=== PATIENT | female | born 1935 | race Caucasian/White ===

== ENCOUNTER → 2018-06-16 12:27 | Outpatient (CLI) | payer BC, SELFPAY ==
[2018-06-16 13:18] LABS: Add Manual Diff / Slide Review NO; Basophils Absolute Auto 100 /uL (0-100); Basophils Percent Auto 1.4 % (0-2); Eosinophils Absolute Auto 100 /uL (0-450); Eosinophils Percent Auto 1.7 % (2-4); Hematocrit 45.7 % (36-46); Hemoglobin 15.8 g/dL (12.0-16.0); Lymphocytes Absolute Auto 2200 /uL (1100-4500); Mean Corpuscular HGB Conc 34.7 % (30-36); Mean Corpuscular Hemoglobin 30.6 PG (26-34); Mean Corpuscular Volume 88.4 fL (80-100); Monocytes Absolute Auto 500 /uL (0-900); Monocytes Percent Auto 7.8 % (3-14); Neutrophils Absolute Auto 3700 /uL (1500-7000); Neutrophils Percent Auto 56.1 % (50-75); Platelet Count 204 X10^3/uL (150-400); Red Blood Cell Count 5.17 X10^6/uL (4.0-5.2); Red Cell Distribution Width 13.2 % (11.6-14.8); White Blood Cell Count 6.6 X10^3/uL (4.5-11.0)
[2018-06-16 13:22] LABS: Alanine Aminotransferase 21 IU/L (9-52); Albumin 4.3 g/dL (3.5-5.0); Albumin Globulin Ratio 1.7 (1.0-2.8); Alkaline Phosphatase 78 U/L (38-126); Aspartate Aminotransferase 24 IU/L (14-36); BUN Creatinine Ratio 18.8 (6-22); Bilirubin Total 1.1 mg/dL (0.2-1.3); Blood Urea Nitrogen 15 mg/dL (7-17); Calcium 9.6 mg/dL (8.4-10.2); Carbon Dioxide 25 mmol/L (22-32); Chloride 101 mmol/L (98-107); Estimated Glomerular Filt Rate > 60.0 mL/min (>60); Globulin 2.6 g/dL (1.7-4.1); Glucose 89 mg/dL (80-110); HEMOLYSIS < 15 (0-50); Potassium 4.3 mmol/L (3.4-5.1); Sodium 136 mmol/L (137-145); Total Protein 6.9 g/dL (6.3-8.2)
[2018-06-16 13:51] LABS: TSH w/ Reflex to FT4 2.51 uIU/mL (0.47-4.68)
== END ==
PROVIDERS: PCP Family Medicine; Visit Provider Family Medicine
DX: I10 Essential (primary) hypertension (principal); D62 Acute posthemorrhagic anemia
CPT/HCPCS: 36415; 80053; 84443; 85025

== ENCOUNTER 2020-03-14 12:44 | Inpatient (IN) | payer MEDICARE, BC, SELFPAY ==
[2020-03-14] VITALS (16 sets, daily range): BP systolic 134–169; BP diastolic 67–94; PULSE 77–115; RESP 16–20; TEMP 36.2–37; O2SAT 92–97; BMI 28.1
--- NOTE | 2020-03-14 13:20 | DI.RAD.S_ITS ---
PROCEDURE: XR HIP W PEL IF DONE RT 2V INDICATIONS: glf TECHNIQUE: AP pelvis with lateral view(s) of the right hip(s). COMPARISON: None. FINDINGS: Bones: No dislocations. Pelvic ring appears intact. No suspicious bony lesions. High probability of femoral neck fracture given morphology and a faint band of sclerosis across the femoral neck on the right. Soft tissues: The visualized bowel gas pattern is normal. No suspicious soft tissue calcifications. IMPRESSION: Right femoral neck fracture as discussed. Dictated by: Gerald Dowling M.D. on 03/14/2020 at 14:04 Approved by: Gerald Dowling M.D. on 03/14/2020 at 14:05
--- NOTE | 2020-03-14 13:51 | ED_ITS ---
HPI - Extremity Injury (Lower) <TERE Mahan - Last Filed: 03/14/20 17:28> General Chief Complaint: Extremity Injury, Lower Stated Complaint: fall yesterday, right hip pain Time Seen by Provider: 03/14/20 13:26 Source: patient Mode of arrival: Ambulatory Limitations: no limitations History of Present Illness HPI Narrative: The patient is an 84-year-old female former smoker with history of right-sided knee replacement who presents with a chief complaint of right- sided hip pain after ground level fall yesterday. She states that she used a new disinfectant spray on linoleum, then stepped on and then slipped. She is adamant that this is a mechanical fall. She did not hit her head. She does not use any blood thinners or take any prescription medication. She states that she tried to stop herself from falling with her right hand and has some bruising there. However that is not painful today. However her hip is increasingly painful today. This occurred fall occurred about 15:30 yesterday, she called her neighbors who came over to help her and brought her Tylenol. She has been using extra-strength Tylenol but states she is still in a lot of pain. She took 1000 mg of Tylenol at 11:30 a.m. this morning. She states she was able to ambulate after the fall. She denies any neck or back pain. She denies any numbness or tingling or any incontinence of bowel or bladder. Last solid intake was yesterday for breakfast. She had water at 11:30 a.m.. Otherwise has not had anything but water today. Related Data Home Medications Medication Instructions Recorded Confirmed Acetaminophen Extra Strength 500 mg PO PRN PRN 03/14/20 03/14/20 Allergies Allergy/AdvReac Type Severity Reaction Status Date / Time gabapentin Allergy Severe BODY WIDE Verified 03/14/20 18:13 EDEMA, NAUSEA meloxicam Allergy Severe SEVERE Verified 03/14/20 18:13 FLUID RETENTION, NAUSEA Sulfa (Sulfonamide Allergy Severe HIVES Verified 03/14/20 18:13 Antibiotics) Review of Systems <TERE Mahan - Last Filed: 03/14/20 17:28> Review of Systems Narrative: GENERAL: Denies chills, fatigue, malaise, fever, sweats. HEENT: Denies sinus pain, ear pain, sore throat, difficulty swallowing, dizziness. RESPIRATORY: Denies dyspnea, cough, wheezing, hemoptysis, sputum. CARDIOVASCULAR: Denies chest pain, palpitations, orthopnea, edema, GASTROINTESTINAL: Denies nausea, vomiting, abdominal pain, diarrhea, constipation, melena. : Denies dysuria, frequency, incontinence, hematuria, urinary retention. MUSCULOSKELETAL: See HPI SKIN: See HPI NEUROLOGIC: Denies weakness, headache, numbness, change in speech, confusion, seizures, incoordination. PSYCHIATRIC: No concerning psychosocial issues. 12 point review of systems is negative except for those stated above Patient History <TERE Mahan - Last Filed: 03/14/20 17:28> Medical History Basal cell carcinoma (BCC) Neuroma Osteoarthritis Pes planus of both feet Surgical History History of bunionectomy History of knee replacement procedure of right knee (~2017) Family History Father Cancer Tobacco use Mother No problems noted. Social History household members: none Smoking Status: Former smoker alcohol intake: current Smoking Status: Former smoker Exam <TERE Mahan - Last Filed: 03/14/20 17:28> Narrative Exam Narrative: GENERAL: This is a well-nourished, well-developed patient, in no acute distress HEAD: Atraumatic. Normocephalic. No temporal or scalp tenderness. EYES: Pupils equal round and reactive. Extraocular motions intact. No scleral icterus. No injection or drainage. ENT: Nose without bleeding, purulent drainage or septal hematoma. Throat without erythema, tonsillar hypertrophy or exudate. Uvula midline. Airway patent. NECK: Trachea midline. No JVD or lymphadenopathy. Supple, nontender, no meningeal signs. CARDIOVASCULAR: Regular rate and rhythm RESPIRATORY: Clear to auscultation. Breath sounds equal bilaterally. No wheezes, rales, or rhonchi. GASTROINTESTINAL: Abdomen soft, non-tender, nondistended. No hepato- splenomegaly, or palpable masses. No guarding. EXTREMITIES: Able to flex and extend all fingers right hand against resistance. Slight pain to palpation noted right hip, no pain to palpation right femur or leg. Positive pedal pulses bilaterally. decreased range of motion right hip all shafer. BACK: Cervical spine nontender to palpation. Nontender without deformity or crepitance. No flank tenderness. NEURO: AOx3. SKIN: Ecchymosis noted on palmar aspect of right hand. Slight ecchymosis on right hip. Initial Vital Signs Initial Vital Signs: Vital Signs Temperature 98.6 F 03/14/20 12:57 Pulse Rate 115 H 03/14/20 12:57 Respiratory Rate 20 03/14/20 12:57 Blood Pressure 160/94 H 03/14/20 12:57 Pulse Oximetry 95 03/14/20 12:57 <Judy Mcintosh MD - Last Filed: 03/15/20 07:46> Initial Vital Signs Initial Vital Signs: Vital Signs Temperature 98.6 F 03/14/20 12:57 Pulse Rate 115 H 03/14/20 12:57 Respiratory Rate 20 03/14/20 12:57 Blood Pressure 160/94 H 03/14/20 12:57 Pulse Oximetry 95 03/14/20 12:57 Scores <TERE Mahan - Last Filed: 03/14/20 17:28> GCS Perry coma scale eye opening: Spontaneous Perry coma scale verbal response: Orientated Perry coma scale motor response: Obey commands Carlos coma scale total score: 15 Course <TERE Mahan - Last Filed: 03/14/20 17:28> Orders Ordered: Acetaminophen (Acetaminophen 325 Mg Tablet) 650 mg PO Q6HR PRN PRN Reason: Fever/Mild Pain (1-3) Acetaminophen/Codeine Phosphate (Codeine/Acetaminophen 30/300 Tablet) 1 tab PO Q6H PRN PRN Reason: Pain, Moderate (4-6) Sodium Chloride (Normal Saline 0.9%) 1,000 mls @ 125 mls/hr IV CONT LUISA Last Admin: 03/14/20 22:26 Dose: 125 mls/hr Documented by: Infusion: 03/14/20 22:26 Dose: 125 mls/hr Documented by: Infusion: 03/14/20 21:14 Dose: 125 mls/hr Documented by: Infusion: 03/14/20 18:00 Dose: 250 mls/hr Documented by: Infusion: 03/14/20 17:47 Dose: 0 mls/hr Documented by: Admin: 03/14/20 17:39 Dose: 250 mls/hr Documented by: LEONELA Naloxone HCl (Naloxone 0.4 Mg/Ml Vial) 0.2 mg IV Q2MIN PRN PRN Reason: Opiate Reversal Ondansetron HCl (Ondansetron 4 Mg/2 Ml Inj) 4 mg IV Q8HR PRN PRN Reason: Nausea And Vomiting Sennosides (Sennosides 8.6 Mg Tablet) 17.2 mg PO BEDTIME [facility] Last Admin: 03/14/20 21:14 Dose: 17.2 mg Documented by: TONY Discontinued Medications Morphine Sulfate (Morphine 2 Mg/Ml Inj) 2 mg IV Q2HR [facility] Last Admin: 03/14/20 22:50 Dose: Not Given Documented by: TONY Morphine Sulfate (Morphine 2 Mg/Ml Inj) 2 mg IV Q2HR PRN PRN Reason: Pain, Moderate (4-6) Vital Signs Vital signs: Vital Signs - 8 hr 03/14/20 12:57 03/14/20 13:42 03/14/20 14:00 Temperature 98.6 F Pulse Rate 115 H 80 79 Respiratory Rate 20 Blood Pressure 160/94 H 160/80 H 140/75 Pulse Oximetry 95 92 93 03/14/20 15:06 03/14/20 15:17 03/14/20 15:30 Temperature Pulse Rate 90 95 H 85 Respiratory Rate Blood Pressure 148/77 H 153/77 H Pulse Oximetry 96 96 96 <Judy Mcintosh MD - Last Filed: 03/15/20 07:46> Orders Ordered: Acetaminophen (Acetaminophen 325 Mg Tablet) 650 mg PO Q6HR PRN PRN Reason: Fever/Mild Pain (1-3) Acetaminophen/Codeine Phosphate (Codeine/Acetaminophen 30/300 Tablet) 1 tab PO Q6H PRN PRN Reason: Pain, Moderate (4-6) Sodium Chloride (Normal Saline 0.9%) 1,000 mls @ 125 mls/hr IV CONT [facility] Last Admin: 03/14/20 22:26 Dose: 125 mls/hr Documented by: Infusion: 03/14/20 22:26 Dose: 125 mls/hr Documented by: Infusion: 03/14/20 21:14 Dose: 125 mls/hr Documented by: Infusion: 03/14/20 18:00 Dose: 250 mls/hr Documented by: Infusion: 03/14/20 17:47 Dose: 0 mls/hr Documented by: Admin: 03/14/20 17:39 Dose: 250 mls/hr Documented by: LEONELA Naloxone HCl (Naloxone 0.4 Mg/Ml Vial) 0.2 mg IV Q2MIN PRN PRN Reason: Opiate Reversal Ondansetron HCl (Ondansetron 4 Mg/2 Ml Inj) 4 mg IV Q8HR PRN PRN Reason: Nausea And Vomiting Sennosides (Sennosides 8.6 Mg Tablet) 17.2 mg PO BEDTIME [facility] Last Admin: 03/14/20 21:14 Dose: 17.2 mg Documented by: TONY Discontinued Medications Morphine Sulfate (Morphine 2 Mg/Ml Inj) 2 mg IV Q2HR [facility] Last Admin: 03/14/20 22:50 Dose: Not Given Documented by: TONY Morphine Sulfate (Morphine 2 Mg/Ml Inj) 2 mg IV Q2HR PRN PRN Reason: Pain, Moderate (4-6) Vital Signs Vital signs: Vital Signs - 8 hr 03/14/20 12:57 03/14/20 13:42 03/14/20 14:00 Temperature 98.6 F Pulse Rate 115 H 80 79 Respiratory Rate 20 Blood Pressure 160/94 H 160/80 H 140/75 Pulse Oximetry 95 92 93 03/14/20 15:06 03/14/20 15:17 03/14/20 15:30 Temperature Pulse Rate 90 95 H 85 Respiratory Rate Blood Pressure 148/77 H 153/77 H Pulse Oximetry 96 96 96 MDM - Extremity Injury (Lower) <TERE Mahan - Last Filed: 03/14/20 17:28> Lab Data Attestation: I reviewed the patient's lab results. Result diagrams: 03/15/20 06:15 03/15/20 06:15 Labs: Lab Results 03/14/20 03/14/20 03/14/20 Range/Units 14:35 14:35 14:35 WBC 8.2 (4.5-11.0) X10^3/uL RBC 4.84 (4.0-5.2) X10^6/uL Hgb 14.6 (12.0-16.0) g/dL Hct 42.9 (36-46) % MCV 88.7 (80-100) fL MCH 30.2 (26-34) PG MCHC 34.1 (30-36) % RDW 13.0 (11.6-14.8) % Plt Count 159 (150-400) X10^3/uL Neut % (Auto) 77.6 H (50-75) % Lymph % (Auto) 14.3 L (25-40) % [place] % (Auto) 6.1 (3-14) % Eos % (Auto) 1.3 L (2-4) % Baso % (Auto) 0.7 (0-2) % Neut # (Auto) 6400 (5580-8314) /uL Lymph # (Auto) 1200 (8813-9267) /uL [place] # (Auto) 500 (0-900) /uL Eos # (Auto) 100 (0-450) /uL Baso # (Auto) 100 (0-100) /uL Sodium 135 L (137-145) mmol/L Potassium 3.9 (3.4-5.1) mmol/L Chloride 104 (98-107) mmol/L Carbon Dioxide 27 (22-32) mmol/L BUN 14 (7-17) mg/dL Creatinine 0.70 (0.52-1.04) mg/dL Estimated GFR > 60.0 (>60) mL/min BUN/Creatinine Ratio 20.0 (6-22) Glucose 107 (80-110) mg/dL Calcium 9.3 (8.4-10.2) mg/dL Total Bilirubin 2.9 H (0.2-1.3) mg/dL AST 28 (14-36) IU/L ALT 16 (<35) IU/L Alkaline Phosphatase 68 (38-126) U/L Total Protein 6.8 (6.3-8.2) g/dL Albumin 4.0 (3.5-5.0) g/dL Globulin 2.8 (1.7-4.1) g/dL Albumin/Globulin Ratio 1.4 (1.0-2.8) Urine Color Urine Appearance Urine pH (4.5-8.0) Ur Specific [place] (1.000-1.035) Urine Protein (Negative) Urine Glucose (UA) (Negative) g/dL Urine Ketones (NEGATIVE) Urine Occult Blood (Negative) Urine Nitrate (Negative) Urine Bilirubin (NEGATIVE) Urine Urobilinogen (0.2) E.U./dL Ur Leukocyte Esterase (NEGATIVE) Urine RBC (0-5/HPF) Urine WBC (0-5/HPF) Ur Squamous Epith Cells (0-5/HPF) Amorphous Sediment Urine Bacteria (None) Urine Mucus (Negative) Ur Culture Indicated? SARS-CoV-2 (PCR) (Negative) Blood Type O Positive Antibody Screen Negative 03/14/20 03/14/20 Range/Units 14:40 15:00 WBC (4.5-11.0) X10^3/uL RBC (4.0-5.2) X10^6/uL Hgb (12.0-16.0) g/dL Hct (36-46) % MCV (80-100) fL MCH (26-34) PG MCHC (30-36) % RDW (11.6-14.8) % Plt Count (150-400) X10^3/uL Neut % (Auto) (50-75) % Lymph % (Auto) (25-40) % [place] % (Auto) (3-14) % Eos % (Auto) (2-4) % Baso % (Auto) (0-2) % Neut # (Auto) (2007-6088) /uL Lymph # (Auto) (1687-2118) /uL [place] # (Auto) (0-900) /uL Eos # (Auto) (0-450) /uL Baso # (Auto) (0-100) /uL Sodium (137-145) mmol/L Potassium (3.4-5.1) mmol/L Chloride (98-107) mmol/L Carbon Dioxide (22-32) mmol/L BUN (7-17) mg/dL Creatinine (0.52-1.04) mg/dL Estimated GFR (>60) mL/min BUN/Creatinine Ratio (6-22) Glucose (80-110) mg/dL Calcium (8.4-10.2) mg/dL Total Bilirubin (0.2-1.3) mg/dL AST (14-36) IU/L ALT (<35) IU/L Alkaline Phosphatase (38-126) U/L Total Protein (6.3-8.2) g/dL Albumin (3.5-5.0) g/dL Globulin (1.7-4.1) g/dL Albumin/Globulin Ratio (1.0-2.8) Urine Color Yellow Urine Appearance Clear Urine pH 5.5 (4.5-8.0) Ur Specific [place] 1.020 (1.000-1.035) Urine Protein Negative (Negative) Urine Glucose (UA) Negative (Negative) g/dL Urine Ketones 1+ H (NEGATIVE) Urine Occult Blood Trace-lysed (Negative) Urine Nitrate Negative (Negative) Urine Bilirubin Negative (NEGATIVE) Urine Urobilinogen 0.2 (0.2) E.U./dL Ur Leukocyte Esterase Negative (NEGATIVE) Urine RBC 0-1/hpf (0-5/HPF) Urine WBC 0-1/hpf (0-5/HPF) Ur Squamous Epith Cells 0-1 /hpf (0-5/HPF) Amorphous Sediment 1+ Urine Bacteria None seen (None) Urine Mucus 1+ H (Negative) Ur Culture Indicated? Cult not indicated SARS-CoV-2 (PCR) Negative (Negative) Blood Type Antibody Screen Imaging Data hip xray : Radiologist's Impression: [address] [place] [id number] Repo rtSigned Patient: Yaneth Hartley [facility]#: [id number]: 5Acct:[id number]/Sex: 84 / FDate of Service: 03/14/20Loc: EDAccession Number: [id number] Procedure: XR hip w pel if done RT 2V Ordering Provider: Judy Mcintosh MD PROCEDURE: XR HIP W PEL IF DONE RT 2V INDICATIONS: glf TECHNIQUE: AP pelvis with lateral view(s) of the right hip(s). COMPARISON: None. FINDINGS: Bones: No dislocations. Pelvic ring appears intact. No suspicious bony lesions. High probability of femoral neck fracture given morphology and a faint band of sclerosis across the femoral neck on the right. Soft tissues: The visualized bowel gas pattern is normal. No suspicious soft tissue calcifications. IMPRESSION: Right femoral neck fracture as discussed. hip ct : Radiologist's Impression: [address] [place] [id number] Scan ReportSigned Patient: Yaneth Hartley [facility]#: [id number]: 5Acct:[id number]/Sex: 84 / FDate of Service: 03/14/20Loc: EDAccession Number: [id number] Procedure: CT pelvis wo con Ordering Provider: Meagan Rosario PROCEDURE: CT PEL WO CON INDICATIONS: ? r fem neck fx on xray TECHNIQUE: Noncontrast 3 mm axial sections acquired through the bony pelvis, with coronal and sagittal reformatting. COMPARISON: [facility], MR, HIP W&WO CONTRAST, 09/18/2014, 14:02. [facility], CR, XR HIP W PEL IF DONE RT 2V, 03/14/2020, 13:24. FINDINGS: Image quality: Excellent. Bones: There is a mildly impacted slightly angulated right femoral neck fracture, causing both a band of vague sclerosis across the femoral neck and a relatively sharply demarcated additional sclerotic line indicating acute fracture rather than chronic fracture as the likely cause. A prior MRI from 09/18/14 had shown normal appearance of the femoral neck in that area previously. No adjacent hematoma is found. A Aguilar catheter empties the bladder lumen. No additional osseous abnormality is seen. Soft tissues: No evidence of ligamentous injury. IMPRESSION: Acute appearing subcapital femoral neck fracture with mild impaction and angulation abnormality, in an area previously normal on prior MR scanning. No adjacent soft tissue edema or hematoma found. Findings discussed with the ordering emergency room physician caring for the patient. Dictated by: Gerald Dowling M.D. on 03/14/2020 at 16:40 Approved by: Gerald Dowling M.D. on 03/14/2020 at 16:48 [facility] Narrative Medical decision making narrative: The patient is an 84-year-old female who p resents 1 day after ground level fall. She complains of right hip pain and difficulty to bear weight. She did not hit her head or neck. Denies any other pain. X-ray illustrate right femoral neck fracture. I spoke with Dr. An from [facility] who would like a CT. CT obtained per his request. Spoke with Dr. An again. Spoke with Dr. jensen who kindly accepted the patient for inpatient admission. Patient states understanding and is appreciative of her care today. <Judy Mcintosh MD - Last Filed: 03/15/20 07:46> Lab Data Labs: Lab Results 03/14/20 03/14/20 03/14/20 Range/Units 14:35 14:35 14:35 WBC 8.2 (4.5-11.0) X10^3/uL RBC 4.84 (4.0-5.2) X10^6/uL Hgb 14.6 (12.0-16.0) g/dL Hct 42.9 (36-46) % MCV 88.7 (80-100) fL MCH 30.2 (26-34) PG MCHC 34.1 (30-36) % RDW 13.0 (11.6-14.8) % Plt Count 159 (150-400) X10^3/uL Neut % (Auto) 77.6 H (50-75) % Lymph % (Auto) 14.3 L (25-40) % [place] % (Auto) 6.1 (3-14) % Eos % (Auto) 1.3 L (2-4) % Baso % (Auto) 0.7 (0-2) % Neut # (Auto) 6400 (0361-4136) /uL Lymph # (Auto) 1200 (3043-9167) /uL [place] # (Auto) 500 (0-900) /uL Eos # (Auto) 100 (0-450) /uL Baso # (Auto) 100 (0-100) /uL Sodium 135 L (137-145) mmol/L Potassium 3.9 (3.4-5.1) mmol/L Chloride 104 (98-107) mmol/L Carbon Dioxide 27 (22-32) mmol/L BUN 14 (7-17) mg/dL Creatinine 0.70 (0.52-1.04) mg/dL Estimated GFR > 60.0 (>60) mL/min BUN/Creatinine Ratio 20.0 (6-22) Glucose 107 (80-110) mg/dL Calcium 9.3 (8.4-10.2) mg/dL Total Bilirubin 2.9 H (0.2-1.3) mg/dL AST 28 (14-36) IU/L ALT 16 (<35) IU/L Alkaline Phosphatase 68 (38-126) U/L Total Protein 6.8 (6.3-8.2) g/dL Albumin 4.0 (3.5-5.0) g/dL Globulin 2.8 (1.7-4.1) g/dL Albumin/Globulin Ratio 1.4 (1.0-2.8) Urine Color Urine Appearance Urine pH (4.5-8.0) Ur Specific [place] (1.000-1.035) Urine Protein (Negative) Urine Glucose (UA) (Negative) g/dL Urine Ketones (NEGATIVE) Urine Occult Blood (Negative) Urine Nitrate (Negative) Urine Bilirubin (NEGATIVE) Urine Urobilinogen (0.2) E.U./dL Ur Leukocyte Esterase (NEGATIVE) Urine RBC (0-5/HPF) Urine WBC (0-5/HPF) Ur Squamous Epith Cells (0-5/HPF) Amorphous Sediment Urine Bacteria (None) Urine Mucus (Negative) Ur Culture Indicated? SARS-CoV-2 (PCR) (Negative) Blood Type O Positive Antibody Screen Negative 03/14/20 03/14/20 Range/Units 14:40 15:00 WBC (4.5-11.0) X10^3/uL RBC (4.0-5.2) X10^6/uL Hgb (12.0-16.0) g/dL Hct (36-46) % MCV (80-100) fL MCH (26-34) PG MCHC (30-36) % RDW (11.6-14.8) % Plt Count (150-400) X10^3/uL Neut % (Auto) (50-75) % Lymph % (Auto) (25-40) % [place] % (Auto) (3-14) % Eos % (Auto) (2-4) % Baso % (Auto) (0-2) % Neut # (Auto) (0181-6062) /uL Lymph # (Auto) (0786-0176) /uL [place] # (Auto) (0-900) /uL Eos # (Auto) (0-450) /uL Baso # (Auto) (0-100) /uL Sodium (137-145) mmol/L Potassium (3.4-5.1) mmol/L Chloride (98-107) mmol/L Carbon Dioxide (22-32) mmol/L BUN (7-17) mg/dL Creatinine (0.52-1.04) mg/dL Estimated GFR (>60) mL/min BUN/Creatinine Ratio (6-22) Glucose (80-110) mg/dL Calcium (8.4-10.2) mg/dL Total Bilirubin (0.2-1.3) mg/dL AST (14-36) IU/L ALT (<35) IU/L Alkaline Phosphatase (38-126) U/L Total Protein (6.3-8.2) g/dL Albumin (3.5-5.0) g/dL Globulin (1.7-4.1) g/dL Albumin/Globulin Ratio (1.0-2.8) Urine Color Yellow Urine Appearance Clear Urine pH 5.5 (4.5-8.0) Ur Specific [place] 1.020 (1.000-1.035) Urine Protein Negative (Negative) Urine Glucose (UA) Negative (Negative) g/dL Urine Ketones 1+ H (NEGATIVE) Urine Occult Blood Trace-lysed (Negative) Urine Nitrate Negative (Negative) Urine Bilirubin Negative (NEGATIVE) Urine Urobilinogen 0.2 (0.2) E.U./dL Ur Leukocyte Esterase Negative (NEGATIVE) Urine RBC 0-1/hpf (0-5/HPF) Urine WBC 0-1/hpf (0-5/HPF) Ur Squamous Epith Cells 0-1 /hpf (0-5/HPF) Amorphous Sediment 1+ Urine Bacteria None seen (None) Urine Mucus 1+ H (Negative) Ur Culture Indicated? Cult not indicated SARS-CoV-2 (PCR) Negative (Negative) Blood Type Antibody Screen Discharge Plan Departure Patient Disposition: Admitted As Inpatient Clinical Impression: Closed fracture of neck of right femur Qualifiers: Encounter type: initial encounter Qualified Code(s): S72.001A - Fracture of unspecified part of neck of right femur, initial encounter for closed fracture Admit Date/Time: 03/14/20 17:28 Admit Provider: Shy Jensen <Judy Mcintosh MD - Last Filed: 03/15/20 07:46> Cosign ED Attending Cosignature Attestation: I was immediately available in the department for consultation throughout this patient's visit. I agree with documentation as above. Judy Mcintosh MD
[2020-03-14 14:43] LABS: Add Manual Diff / Slide Review NO; Basophils Absolute Auto 100 /uL (0-100); Basophils Percent Auto 0.7 % (0-2); Eosinophils Absolute Auto 100 /uL (0-450); Eosinophils Percent Auto 1.3 % (2-4); Hematocrit 42.9 % (36-46); Hemoglobin 14.6 g/dL (12.0-16.0); Lymphocytes Absolute Auto 1200 /uL (1100-4500); Lymphocytes Percent Auto 14.3 % (25-40); Mean Corpuscular HGB Conc 34.1 % (30-36); Mean Corpuscular Hemoglobin 30.2 PG (26-34); Mean Corpuscular Volume 88.7 fL (80-100); Monocytes Absolute Auto 500 /uL (0-900); Monocytes Percent Auto 6.1 % (3-14); Neutrophils Absolute Auto 6400 /uL (1500-7000); Neutrophils Percent Auto 77.6 % (50-75); Platelet Count 159 X10^3/uL (150-400); Red Blood Cell Count 4.84 X10^6/uL (4.0-5.2); White Blood Cell Count 8.2 X10^3/uL (4.5-11.0)
[2020-03-14 14:54] LABS: Alanine Aminotransferase 16 IU/L (<35); Albumin Globulin Ratio 1.4 (1.0-2.8); Alkaline Phosphatase 68 U/L (38-126); Aspartate Aminotransferase 28 IU/L (14-36); Bilirubin Total 2.9 mg/dL (0.2-1.3); Blood Urea Nitrogen 14 mg/dL (7-17); Calcium 9.3 mg/dL (8.4-10.2); Carbon Dioxide 27 mmol/L (22-32); Chloride 104 mmol/L (98-107); Estimated Glomerular Filt Rate > 60.0 mL/min (>60); Globulin 2.8 g/dL (1.7-4.1); Glucose 107 mg/dL (80-110); HEMOLYSIS < 15 (0-50); Potassium 3.9 mmol/L (3.4-5.1); Sodium 135 mmol/L (137-145); Total Protein 6.8 g/dL (6.3-8.2)
[2020-03-14 15:03] LABS: COVID19 -Nasal RAPID Negative (Negative)
[2020-03-14 15:26] LABS: Bacteria Urine None Seen
[2020-03-14 15:27] LABS: Appearance Urine UA CLEAR; Bilirubin Urine UA NEGATIVE (NEGATIVE); Color Urine UA YELLOW; Glucose Urine UA NEGATIVE (Negative); Ketones Urine UA 1+ (NEGATIVE); Leukocyte Esterase Urine UA NEGATIVE (NEGATIVE); Nitrite Urine UA NEGATIVE (Negative); Occult Blood Urine UA TRACE-LYSED (Negative); Protein Urine UA NEGATIVE (Negative); Urobilinogen Urine UA 0.2 E.U./dL (0.2)
[2020-03-14 15:38] LABS: pH Urine UA 5.5 (4.5-8.0)
[2020-03-14 15:39] LABS: Amorphous Sediment Urine 1+; Culture Indicated Urine Cult Not Indicated; Mucus Urine 1+ (Negative); RBC Urine 0-1/HPF (0-5/HPF); Squamous Epithelial Cell Urine 0-1 /HPF (0-5/HPF); WBC Urine 0-1/HPF (0-5/HPF)
--- NOTE | 2020-03-14 15:40 | DI.CT.S_ITS ---
PROCEDURE: CT PEL WO CON INDICATIONS: ? r fem neck fx on xray TECHNIQUE: Noncontrast 3 mm axial sections acquired through the bony pelvis, with coronal and sagittal reformatting. COMPARISON: [facility], MR, HIP W&WO CONTRAST, 09/18/2014, 14:02. [facility], CR, XR HIP W PEL IF DONE RT 2V, 03/14/2020, 13:24. FINDINGS: Image quality: Excellent. Bones: There is a mildly impacted slightly angulated right femoral neck fracture, causing both a band of vague sclerosis across the femoral neck and a relatively sharply demarcated additional sclerotic line indicating acute fracture rather than chronic fracture as the likely cause. A prior MRI from 09/18/14 had shown normal appearance of the femoral neck in that area previously. No adjacent hematoma is found. A Aguilar catheter empties the bladder lumen. No additional osseous abnormality is seen. Soft tissues: No evidence of ligamentous injury. IMPRESSION: Acute appearing subcapital femoral neck fracture with mild impaction and angulation abnormality, in an area previously normal on prior MR scanning. No adjacent soft tissue edema or hematoma found. Findings discussed with the ordering emergency room physician caring for the patient. Dictated by: Gerald Dowling M.D. on 03/14/2020 at 16:40 Approved by: Gerald Dowling M.D. on 03/14/2020 at 16:48
[2020-03-14] MEDS: SODIUM CHLORIDE 0.9% 1,000 ML 250 ML IV (17:39)
[2020-03-14] MEDS: SENNOSIDES 8.6 MG TABLET 17.2 MG PO (21:14)
[2020-03-14] MEDS: SODIUM CHLORIDE 0.9% 1,000 ML 125 ML IV (22:26)
[2020-03-15] VITALS (20 sets, daily range): BP systolic 130–164; BP diastolic 61–87; PULSE 71–97; RESP 10–20; TEMP 36.3–37.3; O2SAT 92–96; BMI 27.3
--- NOTE | 2020-03-15 | DI.RAD.S_ITS ---
PROCEDURE: XR HIP W PEL IF DONE RT 2V INDICATIONS: BROKEN HIP TECHNIQUE: Fluoroscopic images were obtained during an operative procedure and submitted for interpretation following the completion of the procedure. COMPARISON: [facility], CT, CT PEL WO CON, 03/14/2020, 15:43. [facility], CR, XR HIP W PEL IF DONE RT 2V, 03/14/2020, 13:24. FINDINGS: These fluoroscopic images were performed for intraoperative localization. On these images, screws are seen involving the femoral neck. Please correlate with intraoperative findings. IMPRESSION: Normal intraoperative examination. Dictated by: Chino Story M.D. on 03/15/2020 at 10:30 Approved by: Chino Story M.D. on 03/15/2020 at 10:31
--- NOTE | 2020-03-15 01:02 | P.HP_ITS ---
History of Present Illness History of Present Illness Date Patient Seen: 03/14/20 Time Patient Seen: 22:00 Chief complaint: fall yesterday, right hip pain Narrative: Yaneth Hartley is a delightful 84 y.o. female who lives at home and takes no medications and was cleaning her laundry room floor with a different smoking pipes cleaner she is accustomed to when she slipped and fell, bruising her hand yesterday. She began to have pain in her right hip and started taking double doses of Tylenol. After talking about it with a friend was convinced to go to the hospital to have it checked out. She does have a history of osteoporosis for which she is not taking any bisphosphonates. She denies hitting her head, losing consciousness, having difficulty breathing or shortness of breath, chest pain, nausea vomiting, dysuria, diarrhea or constipation. She does complain of bruising of her right hand. CT of the pelvis done in the ED reported that ?Acute appearing subcapital femo ral neck fracture with mild impaction and angulation abnormality, in an area previously normal on prior MR scanning. Patient is afebrile at 98.2, blood pressure 146/89, heart rate 77, respiratory rate of 16, she has an oxygen saturation 95% on room air, she weighs 72.3 kg with a BMI of 28.1. CBC is essentially within normal limits, sodium was 135, she had a elevated bilirubin of 2.9, your UA was negative for UTI, and COVID-19 PCR was negative. Patient History Medical History Basal cell carcinoma (BCC) Neuroma Osteoarthritis Pes planus of both feet Surgical History History of bunionectomy History of knee replacement procedure of right knee (~2017) Family & Social History Family History Father Cancer Tobacco use Mother No problems noted. Social History: household members none Prior Living Arrangements House Safety & Behavioral: Feels Safe in Current Yes Environment Been Physically Hurt or No Threatened By a Person Suicidal Ideation Description None Suicide Plan Description No Plan Tobacco & Substance use: Tobacco type cigarettes Smoking Status Former smoker alcohol intake current alcohol intake frequency holiday/special occasion Substance Use Type does not use Meds Home Medications and Allergies Home Medications Medication Instructions Recorded Confirmed Type Acetaminophen Extra Strength 500 mg PO PRN PRN 03/14/20 03/14/20 History Allergies Allergy/AdvReac Type Severity Reaction Status Date / Time gabapentin Allergy Severe BODY WIDE Verified 03/14/20 18:13 EDEMA, NAUSEA meloxicam Allergy Severe SEVERE Verified 03/14/20 18:13 FLUID RETENTION, NAUSEA Sulfa (Sulfonamide Allergy Severe HIVES Verified 03/14/20 18:13 Antibiotics) Review of Systems Review of Systems ROS: Yes All systems reviewed with the patient and are negative except as otherwise documented Exam Vital Signs (past 8 hours): - 03/14/20 17:30 03/14/20 17:31 03/14/20 19:06 Temperature 97.2 F L Pulse Rate 83 84 102 H Respiratory Rate 18 Blood Pressure 169/74 H 161/88 H Pulse Oximetry 94 94 95 03/14/20 20:57 03/14/20 21:15 03/14/20 23:42 Temperature 98.3 F 98.2 F Pulse Rate 86 77 Respiratory Rate 18 16 Blood Pressure 144/87 H 146/89 H Pulse Oximetry 93 93 95 Oxygen Delivery Method Room Air Oxygen Flow Rate 0 Narrative Exam Narrative: Gen: Alert, oriented, well-developed 84 y.o. female, mildly anxious initially HEENT: normocephalic, atraumatic, conjunctiva clear, sclera non-icteric, oral mucosa pink and moist Neck: supple, full ROM, no JVD, trachea is midline Resp: Lungs CTA, non-labored breathing CV: RRR, no murmur or rubs Abd: soft, non-tender, normoactive BTs Skin: no lesions or rashes, dry and intact Neuro: Alert and oriented X 4 w/no focal deficits. Speech clear and coherent. Extremities: Bruising of palmar surface of her right hand, right leg is contracted, negative Jono?s sign Psyche: normal mood and affect. Objective Labs Result Diagrams: 03/14/20 14:35 03/14/20 14:35 Labs: Laboratory Results - last 24 hr 03/14/20 03/14/20 03/14/20 14:35 14:35 14:35 WBC 8.2 RBC 4.84 Hgb 14.6 Hct 42.9 MCV 88.7 MCH 30.2 MCHC 34.1 RDW 13.0 Plt Count 159 Neut % (Auto) 77.6 H Lymph % (Auto) 14.3 L [place] % (Auto) 6.1 Eos % (Auto) 1.3 L Baso % (Auto) 0.7 Neut # (Auto) 6400 Lymph # (Auto) 1200 [place] # (Auto) 500 Eos # (Auto) 100 Baso # (Auto) 100 Sodium 135 L Potassium 3.9 Chloride 104 Carbon Dioxide 27 BUN 14 Creatinine 0.70 Estimated GFR > 60.0 BUN/Creatinine Ratio 20.0 Glucose 107 Calcium 9.3 Total Bilirubin 2.9 H AST 28 ALT 16 Alkaline Phosphatase 68 Total Protein 6.8 Albumin 4.0 Globulin 2.8 Albumin/Globulin Ratio 1.4 Urine Color Urine Appearance Urine pH Ur Specific [place] Urine Protein Urine Glucose (UA) Urine Ketones Urine Occult Blood Urine Nitrate Urine Bilirubin Urine Urobilinogen Ur Leukocyte Esterase Urine RBC Urine WBC Ur Squamous Epith Cells Amorphous Sediment Urine Bacteria Urine Mucus Ur Culture Indicated? SARS-CoV-2 (PCR) Blood Type O Positive Antibody Screen Negative 03/14/20 03/14/20 14:40 15:00 WBC RBC Hgb Hct MCV MCH MCHC RDW Plt Count Neut % (Auto) Lymph % (Auto) [facility] % (Auto) Eos % (Auto) Baso % (Auto) Neut # (Auto) Lymph # (Auto) [place] # (Auto) Eos # (Auto) Baso # (Auto) Sodium Potassium Chloride Carbon Dioxide BUN Creatinine Estimated GFR BUN/Creatinine Ratio Glucose Calcium Total Bilirubin AST ALT Alkaline Phosphatase Total Protein Albumin Globulin Albumin/Globulin Ratio Urine Color Yellow Urine Appearance Clear Urine pH 5.5 Ur Specific [place] 1.020 Urine Protein Negative Urine Glucose (UA) Negative Urine Ketones 1+ H Urine Occult Blood Trace-lysed Urine Nitrate Negative Urine Bilirubin Negative Urine Urobilinogen 0.2 Ur Leukocyte Esterase Negative Urine RBC 0-1/hpf Urine WBC 0-1/hpf Ur Squamous Epith Cells 0-1 /hpf Amorphous Sediment 1+ Urine Bacteria None seen Urine Mucus 1+ H Ur Culture Indicated? Cult not indicated SARS-CoV-2 (PCR) Negative Blood Type Antibody Screen Assessment & Plan Assessment & Plan narrative: Yaneth Hartley is admitted for surgical treatment of an acute right subcapital femoral neck fracture. Acute right subcapitol femoral neck fracture, present on admission -Dr. An plans on taking her into the OR on 03/15 -Pain control with T3, patient declining morphine Elevated blood pressure without a diagnosis of hypertension with a bp of 146/89 -Likely due to pain and anxiety associated with anticipated surgery VTE prophylaxis: Wells risk score: 0 Bilateral SCDs Consults: Dr. An, consult and involvement is appreciated. Patient is admitted under inpatient status with expected length of stay greater than 2 midnights due to severity of presenting symptoms, risk of adverse event, and complexity of treatment plan. FEN: NS at 100 ml/hour, regular diet, NPO after midnight, BMP and magnesium in the am. Dispo: Unknown at this time. She lives with level access in her own home, recommend HHPT Code Status: Full code as discussed with patient COVID-19 COVID-19 status: Negative Result date/Date tested (Pos, Neg/Pending): 03/14/20 Quality VTE Deep Vein Thrombosis/Pulmonary Embolism Present on Admission: No
[2020-03-15 06:26] LABS: Add Manual Diff / Slide Review NO; Basophils Absolute Auto 100 /uL (0-100); Eosinophils Absolute Auto 300 /uL (0-450); Eosinophils Percent Auto 3.8 % (2-4); Hematocrit 39.6 % (36-46); Hemoglobin 13.5 g/dL (12.0-16.0); Lymphocytes Absolute Auto 1600 /uL (1100-4500); Lymphocytes Percent Auto 21.7 % (25-40); Mean Corpuscular HGB Conc 34.1 % (30-36); Mean Corpuscular Volume 88.2 fL (80-100); Monocytes Absolute Auto 500 /uL (0-900); Monocytes Percent Auto 6.9 % (3-14); Neutrophils Absolute Auto 4800 /uL (1500-7000); Neutrophils Percent Auto 66.6 % (50-75); Platelet Count 146 X10^3/uL (150-400); Red Blood Cell Count 4.49 X10^6/uL (4.0-5.2); Red Cell Distribution Width 12.7 % (11.6-14.8); White Blood Cell Count 7.2 X10^3/uL (4.5-11.0)
[2020-03-15 06:55] LABS: BUN Creatinine Ratio 13.2 (6-22); Blood Urea Nitrogen 9 mg/dL (7-17); Calcium 8.4 mg/dL (8.4-10.2); Carbon Dioxide 26 mmol/L (22-32); Chloride 108 mmol/L (98-107); Estimated Glomerular Filt Rate > 60.0 mL/min (>60); Glucose 90 mg/dL (80-110); HEMOLYSIS < 15 (0-50); Magnesium 1.6 mg/dL (1.6-2.3); Potassium 3.5 mmol/L (3.4-5.1); Sodium 135 mmol/L (137-145)
[2020-03-15] MEDS: SODIUM CHLORIDE 0.9% 1,000 ML 125 ML IV (08:15)
--- NOTE | 2020-03-15 09:16 | CM.IDA ---
Addendum entered by JESUS Davies 03/15/20 15:04: Met w/patient briefly after she returned to the acute care floor from surgery, patient in good spirits. Patient indp and active at baseline, very hopeful to return home w/assist from her friends. This COMMAND AND CONTROL SYSTEMS INTEGRATOR suggested, at the very least, she should ask her friend(s) to stay w/her a night hopefully two upon her DC. Patient understood, PT still pending, patient is only POD#0 MARLON Original Note: Initial DCP Assessment Note Patient is an 84 yo female, resident of [place]. Patient presents after GLF at home and subsequent hip fx, going to surgery w/ Dr An today for hip repair. PCP: Enedelia Fabian Payer: [facility] Reviewed chart. Patient is scheduled for hip repair at 1045 03.15.20. DCP team will follow closely and plan to complete assessment of DC needs s/p surgery and after therapies have evaluated. MARLON Discharge Planning/Care Management CM Discharge Assessment Start: 03/15/20 08:56 Freq: Status: Active Protocol: Document 03/15/20 08:56 MARLON (Rec: 03/15/20 09:15 MARLON [id number]) Discharge Planning Assessment Assigned Flower Picker JESUS Oliveira DPOA/Assigned Designee Name Mick Hartley, son (OR) Contact Information [phone] Advance Directives? Yes Advance Directives on File Yes History Provided By Patient,Medical Record Prior Living Arrangements House Comment Lives alone, indp at baseline Household Members none Type of transporation used prior to Drives own vehicle admit Independent with ADL's Yes Is patient alert and oriented? Yes Barriers to Discharge Yes Comment Lives alone; may require assistance upon DC Review Status In Process
[2020-03-15] MEDS: LACTATED RINGERS 1,000 ML 42 ML IV (09:45)
--- NOTE | 2020-03-15 10:11 | PM.CN ---
History of Present Illness Consult details Date Patient Seen: 03/15/20 Time Patient Seen: 10:11 Chief complaint: fall yesterday, right hip pain Reason for consult: Right hip fracture Narrative: 84-year-old female who slipped and fell on landing on her right hip. Patient was able to bear weight but it did cause her quite a bit of pain and started to use a walker that she had. Her friends encouraged her to go to the emergency room which she did on Tuesday where x-rays and CT scan showed a nondisplaced impacted femoral neck fracture. Patient was admitted for this injury. Patient denies any other particular injuries from the fall. Denies hitting her head denies any loss of consciousness. Meds Home Medications and Allergies Home Medications Medication Instructions Recorded Confirmed Type Acetaminophen Extra Strength 500 mg PO PRN PRN 03/14/20 03/14/20 History Allergies Allergy/AdvReac Type Severity Reaction Status Date / Time gabapentin Allergy Severe BODY WIDE Verified 03/14/20 18:13 EDEMA, NAUSEA meloxicam Allergy Severe SEVERE Verified 03/14/20 18:13 FLUID RETENTION, NAUSEA Sulfa (Sulfonamide Allergy Severe HIVES Verified 03/14/20 18:13 Antibiotics) Exam Vital Signs (past 8 hours): - 03/15/20 05:34 03/15/20 09:00 03/15/20 09:28 Temperature 98.0 F 99.2 F 98.9 F Pulse Rate 89 86 95 H Respiratory Rate 16 16 16 Blood Pressure 136/75 143/84 H 164/87 H Pulse Oximetry 95 94 95 Oxygen Delivery Method Room Air Oxygen Flow Rate 0 Narrative Exam Narrative: On physical exam, patient is alert and oriented x3 in no apparent distress. Patient has some bruising to the palmar aspect of her right hand but has full range of motion and no pain with palpation of the distal radius. Full range of motion of the fingers. No sign of any significant shortening or rotation of the right lower extremity. Patient has full dorsiflexion and plantar flexion of the toes and ankle. Palpable pedal pulses. Brisk cap refill. Nontender to palpation throughout the ankle lower leg and knee. No sign of any ankle or knee swelling. Signs of a previous total knee replacement on the right side. No sign of any instability to the knee. Mild discomfort with internal and external rotation of the hip. Objective Labs Result Diagrams: 03/15/20 06:15 01/16/21 06:15 Labs: Laboratory Results - last 24 hr 03/14/20 03/14/20 03/14/20 14:35 14:35 14:35 WBC 8.2 RBC 4.84 Hgb 14.6 Hct 42.9 MCV 88.7 MCH 30.2 MCHC 34.1 RDW 13.0 Plt Count 159 Neut % (Auto) 77.6 H Lymph % (Auto) 14.3 L [place] % (Auto) 6.1 Eos % (Auto) 1.3 L Baso % (Auto) 0.7 Neut # (Auto) 6400 Lymph # (Auto) 1200 [place] # (Auto) 500 Eos # (Auto) 100 Baso # (Auto) 100 Sodium 135 L Potassium 3.9 Chloride 104 Carbon Dioxide 27 BUN 14 Creatinine 0.70 Estimated GFR > 60.0 BUN/Creatinine Ratio 20.0 Glucose 107 Calcium 9.3 Magnesium Total Bilirubin 2.9 H AST 28 ALT 16 Alkaline Phosphatase 68 Total Protein 6.8 Albumin 4.0 Globulin 2.8 Albumin/Globulin Ratio 1.4 Urine Color Urine Appearance Urine pH Ur Specific [place] Urine Protein Urine Glucose (UA) Urine Ketones Urine Occult Blood Urine Nitrate Urine Bilirubin Urine Urobilinogen Ur Leukocyte Esterase Urine RBC Urine WBC Ur Squamous Epith Cells Amorphous Sediment Urine Bacteria Urine Mucus Ur Culture Indicated? SARS-CoV-2 (PCR) Blood Type O Positive Antibody Screen Negative 03/14/20 03/14/20 03/15/20 14:40 15:00 06:15 WBC 7.2 RBC 4.49 Hgb 13.5 Hct 39.6 MCV 88.2 MCH 30.0 MCHC 34.1 RDW 12.7 Plt Count 146 L Neut % (Auto) 66.6 Lymph % (Auto) 21.7 L [place] % (Auto) 6.9 Eos % (Auto) 3.8 Baso % (Auto) 1.0 Neut # (Auto) 4800 Lymph # (Auto) 1600 [place] # (Auto) 500 Eos # (Auto) 300 Baso # (Auto) 100 Sodium Potassium Chloride Carbon Dioxide BUN Creatinine Estimated GFR BUN/Creatinine Ratio Glucose Calcium Magnesium Total Bilirubin AST ALT Alkaline Phosphatase Total Protein Albumin Globulin Albumin/Globulin Ratio Urine Color Yellow Urine Appearance Clear Urine pH 5.5 Ur Specific [place] 1.020 Urine Protein Negative Urine Glucose (UA) Negative Urine Ketones 1+ H Urine Occult Blood Trace-lysed Urine Nitrate Negative Urine Bilirubin Negative Urine Urobilinogen 0.2 Ur Leukocyte Esterase Negative Urine RBC 0-1/hpf Urine WBC 0-1/hpf Ur Squamous Epith Cells 0-1 /hpf Amorphous Sediment 1+ Urine Bacteria None seen Urine Mucus 1+ H Ur Culture Indicated? Cult not indicated SARS-CoV-2 (PCR) Negative Blood Type Antibody Screen 03/15/20 06:15 WBC RBC Hgb Hct MCV MCH MCHC RDW Plt Count Neut % (Auto) Lymph % (Auto) [place] % (Auto) Eos % (Auto) Baso % (Auto) Neut # (Auto) Lymph # (Auto) [place] # (Auto) Eos # (Auto) Baso # (Auto) Sodium 135 L Potassium 3.5 Chloride 108 H Carbon Dioxide 26 BUN 9 Creatinine 0.68 Estimated GFR > 60.0 BUN/Creatinine Ratio 13.2 Glucose 90 Calcium 8.4 Magnesium 1.6 Total Bilirubin AST ALT Alkaline Phosphatase Total Protein Albumin Globulin Albumin/Globulin Ratio Urine Color Urine Appearance Urine pH Ur Specific [place] Urine Protein Urine Glucose (UA) Urine Ketones Urine Occult Blood Urine Nitrate Urine Bilirubin Urine Urobilinogen Ur Leukocyte Esterase Urine RBC Urine WBC Ur Squamous Epith Cells Amorphous Sediment Urine Bacteria Urine Mucus Ur Culture Indicated? SARS-CoV-2 (PCR) Blood Type Antibody Screen Assessment & Plan Assessment & Plan narrative: Patient with a right nondisplaced femoral neck fracture. Based on this injury we would recommend surgical treatment. I went over operative versus non operative treatment and the risks and limitations associated with both. Patient is in agreement with operative treatment which will involve a close reduction and percutaneous pinning of the right hip. I went over the particular risks and limitations associated with that procedure. All of her questions and concerns are answered to her full satisfaction and consent form was freely obtained. COVID-19 COVID-19 status: Negative Result date/Date tested (Pos, Neg/Pending): 03/14/20 Time Spent With Patient Time with patient: less than 15 minutes
--- NOTE | 2020-03-15 10:17 | PM.PREOP ---
Pre-operative Note COVID-19 COVID-19 status: Negative Result date/Date tested (Pos, Neg/Pending): 03/14/20 Interval Note History & Physical reviewed/Exam performed by Physician: Yes Changes to H&P: No
[2020-03-15] MEDS: CEFAZOLIN 2 GM/100 ML FROZ.PIGGY IV ×2 (10:30→18:33)
--- NOTE | 2020-03-15 10:58 | SUR.OPER ---
Head on pillow. Supine on fracture table with operative leg secured in traction. Other leg secured in padded stirrup. Arms across chest, secured with sheet.
[2020-03-15] MEDS: BUPIVACAINE 0.5% W/ EPI (PF) 30 ML VIAL INJ (11:09)
--- NOTE | 2020-03-15 11:31 | PM.OP.1 ---
Operative Date/Time/Diagnoses Date of procedure: 03/15/20 Time of procedure: 10:31 Pre-op diagnosis: Right proximal femur fracture Post-op diagnosis: same Procedure & Clinicians Procedure: Close reduction percutaneous pinning of right proximal femur fracture Same procedure as scheduled: Yes Indications: Right proximal femur fracture Surgeon: Barry An Click Yes if Unassisted: Yes Anesthesia Type: General Operative Notes Findings: Impacted minimally displaced femoral neck fracture Closure Type: primary Specimen(s): none sent Applied: implant(s) (Three 7.3 mm partially-threaded cannulated Synthes screws size 80 mm in length) Estimated Blood Loss (mL): 5 Blood products transfused: none Procedure in detail: On date of service, patient was met in the holding area where his operative site was signed and witnessed by the OR staff. Surgeries once again discussed with the patient and any remaining questions or concerns he had were answered fully. Patient received 2 g of Ancef preoperatively. Patient was taken back to the operating theater where general anesthesia was admitted. Patient was then transferred to the fracture table. Both feet were well padded and placed into fracture boot. A well-padded perineal post was placed. The left leg was slightly elevated and internally rotated was some distraction. The right leg was placed in scissor position on a lowered position. X-ray was brought in and AP and lateral views were obtained showing maintenance of a nondisplaced femoral neck fracture. Time-out had previously been formed verifying patient's name, procedure, and operative site. The leg was then prepped and draped in the normal sterile fashion. Ten blade was used to make a small incision on the lateral aspect of thigh. Buck elevator was then used to elevate off a small area of the muscular tissue so we could get to the shaft of the femur. Guidewire was placed up into the femoral head in a center center position. This was verified on x-ray. Once we were satisfied with the position of the guidewire 2 additional guidewires were placed using the targeting guide. These were also verified with AP and lateral views with the C-arm. Once we were satisfied with the positioning and of the 3 guidewires they were measured and the appropriate screws were placed. Final x-rays were obtained verifying screw positioning and maintenance of reduction of the femoral neck fracture. The wound was then copiously irrigated and then closed in a layered fashion. The wound was cleaned, dried, and dressed. Patient was taken to the PACU in stable condition. Complications: none Post-operative Condition: stable Disposition: PACU Plan for aftercare: Patient will be toe-touch weight-bearing for the next 6 weeks.
[2020-03-15] MEDS: fentaNYL 100 MCG/2 ML INJ IV ×2 (11:35→11:42)
[2020-03-15] MEDS: HYDROCODONE/ACET 5/325 TABLET 2 TAB PO ×2 (11:50→12:11)
[2020-03-15] MEDS: ONDANSETRON 4 MG/2 ML INJ IV (11:51)
[2020-03-15] MEDS: LACTATED RINGERS 1,000 ML 125 ML IV (14:00)
--- NOTE | 2020-03-15 14:26 | PT.IIE ---
Current Diagnoses Unspecified intracapsular fracture of right femur, initial encounter for closed fracture (03/14/20) Surgery Performed Operation Date: 03/15/20 10:45 Actual Procedures p ORIF Hip/Cannulated Screws(Right) - Barry nA MD Surgical History (Last Reviewed 03/15/20 @ 10:14 by Barry An MD) History of bunionectomy History of knee replacement procedure of right knee (~2016) Medical History (Last Reviewed 03/15/20 @ 10:14 by Barry An MD) Basal cell carcinoma (BCC) Neuroma Osteoarthritis Pes planus of both feet Physical Therapy Inpatient Evaluation/Re-Eval M1 PT/OT-IP Prior Functional Status Start: 03/15/20 15:41 Freq: NEEDED Status: Active Protocol: Document 03/15/20 14:26 AB (Rec: 03/15/20 16:00 AB [id number]) Medical Review Prior Functional Status Medical History Reviewed Yes Communication able to make needs known Mobility and Gait pt stated that she is independent with all mobilities and ambulation without AD Social History Household Members none Living Arrangements House Number of Floors (Floors) One Floor Number of Stairs To Enter/Railing? 1 step to enter Home Environment Standard Height Toilet,Walk in Shower Home Equipment Front Wheel Walker,Hand Held Shower M2 PT-IP Current Condition Start: 03/15/20 15:41 Freq: NEEDED Status: Active Protocol: Document 03/15/20 14:26 AB (Rec: 03/15/20 16:00 AB [email or web address]) Physical Therapy Current Condition Current Condition Evaluation Date 03/15/20 Treatment Diagnosis R femur fx s/p percutaneous pinning; difficulty in walking Onset Date 03/14/20 Weight Bearing Status Weight Bearing Status Touch Down Weight Bearing Allowed Weight Bearing Amount (enter % RLE TTWB or #) (%) M3 PT-IP Subjective Start: 03/15/20 15:41 Freq: NEEDED Status: Active Protocol: Document 03/15/20 14:26 AB (Rec: 03/15/20 16:00 AB [email or web address]) Subjective Physical Therapy Visit Type Type Initial Evaluation Visit Start Time 14:26 Visit Stop Time 15:13 Total Visit Minutes 47 Number of IMMIGRATION PATROL INSPECTOR Visits 0 Physical Therapy Visit Comments Patient Comments pt is agreeable to do PT but requires encouragement to participate Therapy Pain Assessment Pain When Pain Assessed During Mobility Pain Present Pain Present Pain Reported Location Right Hip Intensity 8 Scale Used Numeric (0 - 10) Pain Management Techniques Distraction,Modification of Treatment,Re-positioning M4 PT-IP Mobility and Gait Start: 03/15/20 15:41 Freq: NEEDED Status: Active Protocol: Document 03/15/20 14:26 AB (Rec: 03/15/20 16:00 AB [id number]) PT-Bed Mobility Assessment Supine to Sit Supine to Sit Maximum Assistance,1 Person Assistance,2 Person Assistance Sit to Supine Sit to Supine Maximum Assistance,1 Person Assistance Scooting Scooting to Edge of Bed Maximum Assistance PT-Transfer Assessment Sit to and From Stand Sit to and from Stand Moderate Assistance,Maximum Assistance,2 Person Assistance ,Use of Upper Extremities Equipment Transfer Assistive Device Front Wheeled Walker Orthotic/Prosthetic Devices or Brace: No Comments Mobility Comments BP: 133/95 O2 sat 94% at room air educated pt on weight bearing restriction. pt is TTWB and PT opted NWB as pt is unable to gauge TTWB. pt completed supine to sit max A x 1-2 and max cues. pt was able to sit on EOB CGA. required max A for scooting and positioning to EOB. pt stated that she will try to stand but will lay back in bed afterwards. completed sit to stand mod to max A x 2 and max cues. pt was able to stand for ~ 20 sec using FWW for support mod A x 2 and cues. pt requested to sit back down and wants to go back to bed. scooted to HOB CGA. completed sit to supine mod A for BLE elevation up to bed. positioned on bed. call light and table placed within reach . informed pt regarding SNF recommendation and equipement needs. pt refuses to go to SNF. informed pt that she needs 24/7 assist at this time , shower chair, RTS with handles (pt refuses a bedside commode), a w/c. informed pt to ask her friends to get the equipement for her but responded that [employer] is not open until next week. educated pt on safety and preparing for home as soon as now since she refuses to go to SNF. informed pt that therapy has to do a caregiver training to ensure that her caregiver will be able to assist her safely. pt stated that she does not have anybody right now but maybe her nurse friend and PT friends can assist her and that they will know how to assist her. educated pt again on safety needs and ensuring that cargivers will be able to provide safe assistance. pt can be resistive to recommendations. talked to oil field caser and requested OT eval need. also informed regarding pt's mobility and d/c recommendations. Gait Assessment Comments Gait Comments unable at this time PT-Balance Assessment Sitting Balance and Reactions Static Sitting Balance Ability Good Dynamic Sitting Balance Ability Fair Standing Balance and Reactions Static Standing Balance Ability Poor Dynamic Standing Balance Ability Poor Device Used FWW M5 PT-IP Objective Assessments Start: 03/15/20 15:41 Freq: NEEDED Status: Active Protocol: Document 03/15/20 14:26 AB (Rec: 03/15/20 16:00 AB [id number]) Orientation Orientation/Cognition Level of Alertness Alert Orientation Name,Place,Situation Language Function Ability No Deficits Noted Safety Awareness Decreased Safety Awareness Memory Description Short Term Impaired Gross Range of Motion Lower Extremity ROM Assessment Within Functional Limits Impairments RLE movement limited due to c/ o increase pain Strength Lower Extremity Strength Assessment Right Impaired Hip 2-/5 Knee 3-/5 Sensation Assessment Sensation Gross Sensation WNL Muscle Tone Muscle Tone WNL Yes M6 PT-IP Treatment Start: 03/15/20 15:41 Freq: NEEDED Status: Active Protocol: Document 03/15/20 14:26 AB (Rec: 03/15/20 16:00 AB [email or web address]) Physical Therapy Treatment Exercises Exercises Quad Sets,Heel Slides Education Education Provided Precautions,Weight Bearing Status,Post-Op Packet,Safety M7 PT-IP Assessment and Plan Start: 03/15/20 15:41 Freq: NEEDED Status: Active Protocol: Document 03/15/20 14:26 AB (Rec: 03/15/20 16:00 AB [id number]) PT Summary Assessment and Plan Potential Rehabilitation Potential Fair Status of Condition at Evaluation Evolving Summary Impairments Pain,ROM,Strength,Balance, Coordination,Sensation,Tone, Cognition,Bed Mobility, Transfers,Gait,Activity Tolerance Assessment Summary pt requiring max A x 2 with mobility and will need 24/7 assist at home. recommending SNF rehab but pt refuses to go to SNF. educated pt regarding equipement recommendations and 24/7 assist. informed oil field caser regarding recommendations OT eval request. will continue to assess progress. Goals Bed Mobility Goal Independent Transfer Goal Independent,Front Wheeled Walker Gait Goal Independent,Front Wheel Walker Gait Distance 100 Other Goals up/down 1 step using FWW SBA Days to Meet Goals 10 Frequency of Treatment Frequency Of Treatment Twice a Day Treatment Plan Physical Therapy Treatment Plan Bed Mobility Training,Transfer Training,Gait Training, Therapeutic Exercise,Balance Retraining,Post Op Education, Discharge Planning,Hot or Cold Pack,Neuromuscular Re-ed, Coordination Retraining,Manual Therapy Recommendations To Nursing Amount of Assist Needed PT/OT Assist Only,Mechanical Lift Discharge Recommendations PT Discharge Recommendations SNF Rehab Transportation Needs at Discharge Wheelchair/Cabulance,Stretcher /Ambulance
[2020-03-15] MEDS: METOCLOPRAMIDE 10 MG/2 ML INJ IV (18:33)
[2020-03-16] VITALS (10 sets, daily range): BP systolic 109–158; BP diastolic 60–83; PULSE 68–86; RESP 16–20; TEMP 36.1–37.3; O2SAT 93–96
[2020-03-16] MEDS: LACTATED RINGERS 1,000 ML 125 ML IV (00:11)
[2020-03-16] MEDS: CEFAZOLIN 2 GM/100 ML FROZ.PIGGY IV (02:25)
--- NOTE | 2020-03-16 04:29 | PC.NURSE ---
Addendum entered by Ligia Melgoza R.N. 03/16/20 04:35: Pt miranda was left unclamped and was leaking to the floor, found at 0253. Unknown amount had leaked out for an unknown amount of time. Miranda clamped, CPS TEAM LEAD informed of potential missing output, and housekeeping called for assistance in cleaning. Original Note: At approx 0253, TREVOR LOPEZ informed this RN that pt had complaints of swelling and irritation at IV site. This RN assessed the IV site (R Forearm) and noted significant swelling and coolness. Fluids were stopped (LR @ 125/hr w/ IV Cefazolin @ 200/hr), line disconnected, and IV site removed. Warm blanket was placed around arm to reduce swelling. New IV was inserted at 0325 (R AC) and LR allowed to run at 125/hr for 15 minutes to check for patency and potential infiltration issues. After reassessing at 0340 with no signs of infiltration, the rest of the IV abx Cefazolin was administered as prescribed with LR running at 125/hr after it. Pt was rechecked at 0355, no signs of infiltration were present.
[2020-03-16] MEDS: ENOXAPARIN 40 MG/0.4 ML SYRINGE SUBCUT (08:50)
[2020-03-16] MEDS: DOCUSATE 100 MG CAPSULE PO ×2 (08:50→21:22)
[2020-03-16] MEDS: HYDROCODONE/ACET 5/325 TABLET 2 TAB PO ×3 (08:53→17:07)
--- NOTE | 2020-03-16 10:41 | P.PN_ITS ---
Subjective Subjective Date Patient Seen: 03/16/20 Time Patient Seen: 10:11 Interval history: Patient is postoperative day 1. Of a right hip closed reduction percutaneous pinning. Patient is doing very well. Patient states she has no pain while lying in bed. Has yet to be up with physical therapy. Patient did work with therapy yesterday and after surgery but pretty much just sat at the edge of the bed. Exam Vital Signs (past 8 hours): - 03/16/20 05:00 03/16/20 05:23 03/16/20 09:51 Temperature 97.0 F L 97.6 F Pulse Rate 68 86 Respiratory Rate 16 16 Blood Pressure 141/70 H 152/78 H Pulse Oximetry 96 96 94 Oxygen Delivery Method Room Air Oxygen Flow Rate 0 Narrative Exam Narrative: Patient's dressing is clean and dry. Patient has positive dorsiflexion and plantar flexion of the toes and ankles. Palpable pedal pulses. Brisk cap refill. Nontender to palpation over the posterior aspect of both calves. Objective Labs Result Diagrams: 03/15/20 06:15 03/15/20 06:15 [facility] Medical History Basal cell carcinoma (BCC) Neuroma Osteoarthritis Pes planus of both feet Surgical History History of bunionectomy History of knee replacement procedure of right knee (~2017) Family History Father Cancer Tobacco use Mother No problems noted. Social History household members: none Smoking Status: Former smoker alcohol intake: current Assessment & Plan Post-op Postoperative Procedures: Procedures Operation Date: 03/15/20 10:45 Actual Procedures Side Surgeon p ORIF Hip/Cannulated Screws Right Barry An MD Postoperative day: 1 Postoperative status: doing well Postoperative status narrative: Patient doing well after hip surgery Postoperative plan: routine post-op care Postoperative plan narrative: Will see how the patient progresses with physical therapy. Based on that we will decide if patient is able to go home or will require half-way placement. Patient can be 50% weight-bearing on the right side. Time Spent With Patient Time with patient: less than 15 minutes Quality VTE Deep Vein Thrombosis/Pulmonary Embolism Present on Admission: No
--- NOTE | 2020-03-16 10:57 | PT.IPTN ---
Current Diagnoses Unspecified intracapsular fracture of right femur, initial encounter for closed fracture (03/14/20) Surgery Performed Operation Date: 03/15/20 10:45 Actual Procedures p ORIF Hip/Cannulated Screws(Right) - Barry An MD Physical Therapy Treatment Note M2 PT-IP Current Condition Start: 03/15/20 15:41 Freq: NEEDED Status: Active Protocol: Document 03/15/20 14:26 AB (Rec: 03/15/20 16:00 AB [email or web address]) Physical Therapy Current Condition Current Condition Evaluation Date 03/15/20 Treatment Diagnosis R femur fx s/p percutaneous pinning; difficulty in walking Onset Date 03/14/20 Weight Bearing Status Weight Bearing Status Touch Down Weight Bearing Allowed Weight Bearing Amount (enter % RLE TTWB or #) (%) M3 PT-IP Subjective Start: 03/15/20 15:41 Freq: NEEDED Status: Active Protocol: Document 03/16/20 10:25 CLB (Rec: 03/16/20 12:26 CLB [id number]) Subjective Physical Therapy Visit Type Type Treatment Note Visit Start Time 10:25 Visit Stop Time 10:57 Total Visit Minutes 32 Notes Co-treat with OT WB order changed to PWB 50% Number of SALESPERSON RECREATIONAL VEHICLES Visits 1 Physical Therapy Visit Comments Patient Comments Pt agreeable to work with therapy this morning. Therapy Pain Assessment Pain When Pain Assessed During Weight Bearing Pain Present Pain Present Pain Reported Location Right Hip Intensity 8 Scale Used Numeric (0 - 10) Pain Management Techniques Distraction,Modification of Treatment,Re-positioning M4 PT-IP Mobility and Gait Start: 03/15/20 15:41 Freq: NEEDED Status: Active Protocol: Document 03/16/20 10:25 CLB (Rec: 03/16/20 12:26 CLB [id number]) PT-Bed Mobility Assessment Supine to Sit Supine to Sit Minimal Assistance,1 Person Assistance Scooting Scooting to Edge of Bed Standby Assistance PT-Transfer Assessment Sit to and From Stand Sit to and from Stand Contact Guard Assistance,1 Person Assistance,Use of Upper Extremities Equipment Transfer Assistive Device Gait Belt,Front Wheeled Walker Orthotic/Prosthetic Devices or Brace: No Transfers Transfer Destination Chair,Toilet Transfer Technique Stand Step Pivot Transfer Ability Level of Assist Contact Guard Assistance,1 Person Assistance,Use of Upper Extremities Comments Mobility Comments Pt require Min A of RLE to EOB then stood CGA. Pt dizzy upon standing and wanted to sit down. Pt BP in sitting 169/92. Pt stood again and dizziness improved but pt was shakey stating she feels weak. Pt ambulated to BR ~10ft CGA and was able to ambulate with WB of 50%. Pt sat on toilet with cues for using wall rail. Pt stood CGA with use of wall rail and ambulated ~10ft to chair sitting CGA. Pt performed AP's with education performing 20 every hour while awake for increased blood flow. Pt left in chair with OT present to continue working with pt. Gait Assessment Gait Gait Assistance Required: Contact Guard Assist,1 Person Assist Distance (Feet) 20 Able to Maintain Weight Bearing Status Yes During Gait Assistive Devices Assistive Device Gait Belt,Front Wheeled Walker Orthotic/Prosthetic Devices or Brace: No Gait Deviations General Gait Pattern Antalgic,Decreased Stride Length,Decreased Feet Clearance,Step-to Gait Factors Limiting Gait Function Factors Limiting Gait Function Decreased Activity Tolerance, Decreased Strength,Limited Range of Motion,Pain,Poor Balance,Poor Safety Awareness Comments Gait Comments see mobility comments. M5 PT-IP Objective Assessments Start: 03/15/20 15:41 Freq: NEEDED Status: Active Protocol: Document 03/15/20 14:26 AB (Rec: 03/15/20 16:00 AB [id number]) Orientation Orientation/Cognition Level of Alertness Alert Orientation Name,Place,Situation Language Function Ability No Deficits Noted Safety Awareness Decreased Safety Awareness Memory Description Short Term Impaired Gross Range of Motion Lower Extremity ROM Assessment Within Functional Limits Impairments RLE movement limited due to c/ o increase pain Strength Lower Extremity Strength Assessment Right Impaired Hip 2-/5 Knee 3-/5 Sensation Assessment Sensation Gross Sensation WNL Muscle Tone Muscle Tone WNL Yes M6 PT-IP Treatment Start: 03/15/20 15:41 Freq: NEEDED Status: Active Protocol: Document 03/16/20 10:25 CLB (Rec: 03/16/20 12:26 CLB [id number]) Physical Therapy Treatment Exercises Exercises Ankle Pumps,Heel Slides Education Education Provided Precautions,Weight Bearing Status,Safety M7 PT-IP Assessment and Plan Start: 03/15/20 15:41 Freq: NEEDED Status: Active Protocol: Document 03/16/20 10:25 CLB (Rec: 03/16/20 12:26 CLB [id number]) PT Summary Assessment and Plan Potential Rehabilitation Potential Fair Status of Condition at Evaluation Evolving Summary Impairments Pain,ROM,Strength,Balance, Coordination,Sensation,Tone, Cognition,Bed Mobility, Transfers,Gait,Activity Tolerance Assessment Summary Pt improving with mobility able to get to EOB with Min A of RLE and able to perform all other mobility with CGA. Pt able to follow WB 50% during ambulation with FWW. Pt refuses to go to SNF rehab and plans on getting caregivers to assist her at home and plans to get toilet riser and shower chair for home use. Goals Bed Mobility Goal Independent Transfer Goal Independent,Front Wheeled Walker Gait Goal Independent,Front Wheel Walker Gait Distance 100 Other Goals up/down 1 step using FWW SBA Days to Meet Goals 10 Frequency of Treatment Frequency Of Treatment Twice a Day Treatment Plan Physical Therapy Treatment Plan Bed Mobility Training,Transfer Training,Gait Training, Therapeutic Exercise,Balance Retraining,Post Op Education, Discharge Planning,Hot or Cold Pack,Neuromuscular Re-ed, Coordination Retraining,Manual Therapy Recommendations To Nursing Amount of Assist Needed 1 Person Assist Discharge Recommendations PT Discharge Recommendations Home with 20/09 Assist,Home Health,SNF Rehab Transportation Needs at Discharge Private Vehicle,Wheelchair/ Cabulance
--- NOTE | 2020-03-16 11:17 | OT.IP.EVAL ---
Current Diagnoses Unspecified intracapsular fracture of right femur, initial encounter for closed fracture (03/14/20) Surgery Performed Operation Date: 03/15/20 10:45 Actual Procedures p ORIF Hip/Cannulated Screws(Right) - Barry An MD Past Medical History (Last Reviewed 03/16/20 @ 10:42 by Barry An MD) Basal cell carcinoma (BCC) Neuroma Osteoarthritis Pes planus of both feet Surgical History (Last Reviewed 03/16/20 @ 10:42 by Barry An MD) History of bunionectomy History of knee replacement procedure of right knee (~2017) Occupational Therapy Inpatient Evaluation/Re-Eval M1 PT/OT-IP Prior Functional Status Start: 03/15/20 15:41 Freq: NEEDED Status: Active Protocol: Document 03/16/20 14:27 CGR (Rec: 03/16/20 14:49 CGR [id number]) Medical Review Prior Functional Status Medical History Reviewed Yes Communication able to make needs known Mobility and Gait pt stated that she is independent with all mobilities and ambulation without AD Activities of Daily Living and IADL's Pt was IND in all ADLs 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 1 step to enter Home Environment Standard Height Toilet,Walk in Shower Home Equipment Front Wheel Walker,Hand Held Shower Employment Status Retired Additional Social History Comment Pt states that he had assist after a recent knee surgery and she is planning to ask for care from the same caretakers . M2 OT-IP Current Condition Start: 03/16/20 14:26 Freq: Status: Active Protocol: Document 03/16/20 14:27 CGR (Rec: 03/16/20 14:49 CGR [id number]) Occupational Therapy Current Condition Current Condition Evaluation Date 03/16/20 Treatment Diagnosis R hip fx s/p closed reducation and pinning. Diagnosis Onset Date 03/14/20 Weight Bearing Status Weight Bearing Status Partial Weight Bearing Allowed Weight Bearing Amount (enter % 50% verbally given order by Dr or #) (%) . Nataliya who was present in room when OT entered M3 OT- IP Subjective and Pain Start: 03/16/20 14:26 Freq: Status: Active Protocol: Document 03/16/20 14:27 CGR (Rec: 03/16/20 14:49 CGR [id number]) OT- Subjective Occupational Therapy Visit Type Type Initial Evaluation Visit Start Time 10:22 Visit Stop Time 11:17 Total Visit Minutes 55 Notes Partial co-treat with P.T. OT Pain Assessment Pain When Pain Assessed At Rest Pain Present Pain Present Denied Pain M4 OT- IP ADL's Start: 03/16/20 14:26 Freq: Status: Active Protocol: Document 03/16/20 14:27 CGR (Rec: 03/16/20 14:49 CGR [id number]) OT [id number] Comments OT Self-Feeding Comments Not meal time OT ADL-Grooming General Evaluation Grooming Ability Standby Assistance Areas Needing Assistance Retrieving/Set-up of Grooming Items,Combing/Brushing Hair, Face Washing Comments OT Grooming Comments seated in chair with set up OT ADL-Oral Care General Eval Oral Care Ability Standby Assistance Areas of Assistance Brushing Teeth,Retrieving/Set- Up of Items Comments Oral Care Comments seated in chair with set up OT ADL-Dressing Comments OT Dressing Comments not performed OT ADL-Toileting General Evaluation Toileting Ability Standby Assistance Comments OT Toileting Comments simulated seated on toielt but pt with miranda at this time OT ADL-Bathing Comments OT Bathing Comments not performed M5 OT- IP IADL's Start: 03/16/20 14:26 Freq: Status: Active Protocol: Document 03/16/20 14:27 CGR (Rec: 03/16/20 14:49 CGR [id number]) OT-Instrumental Activities of Daily Living Deficits IADL Deficits Identified No Deficits Home Safety Awareness Awareness of Need for Assistance at Home Good Awareness Ability to Problem Solve Emergency Able to Problem Solve Situations Home Safety Comments Pt seems to understand that she will need assist at home but needs time to come to terms with equipment needs. Medication Management Medication Management No Deficits Identified Money Management Money Management No Deficits Identified Meal Preparation Meal Preparation Caregiver Provides Assist Cmm Inspector Cmm Inspector Caregiver Provides Assist Driving Driving Comments Pt understands that she will not be able to drive for some time. M6 OT- IP Functional Cognition Start: 03/16/20 14:26 Freq: Status: Active Protocol: Document 03/16/20 14:27 CGR (Rec: 03/16/20 14:49 CGR [id number]) Cognitive Factors Limiting Selfcare Function Cognitive Ability Level of Alertness Alert Patient Orientation Name,Age,Birthday,Month,Date, Year,Day of Week,Place, Situation Attention Span Ability Capable of Focused Attention, Capable of Sustained Attention Ability to Follow Commands Able to Follow One Step Commands with Increased Time, Able to Follow One Step Commands with Repetition OT- Vision and Hearing OT- Hearing Assessment OT- Hearing Assessment WFL OT- Vision Assessment Visual Acuity Glasses All The Time Visual Attentiveness WFL Occular Pursuits WFL Visual Convergence WFL M7 OT- IP Mobility and Balance Start: 03/16/20 14:26 Freq: Status: Active Protocol: Document 03/16/20 14:27 CGR (Rec: 03/16/20 14:49 CGR [id number]) OT- Bed Mobility Assessment Supine to Sit Supine to Sit Assist Minimal Assistance Scooting Scooting to Edge of Bed Contact Guard Assistance OT-Transfer Assessment Sit to and From Stand Sit to and from Stand Contact Guard Assistance Transfers Transfer Ability Contact Guard Assistance Technique Transfer Destination Bed,Chair,Toilet Transfer Technique Stand Step Pivot Devices Transfer Assistive Devices Gait Belt,Front Wheeled Walker Comments Mobility Comments Pt was able to ambulated to bathroom and return to chair with new 50% WB. Pt was shaky with mobility and states increased pain with mobility. OT- Balance Assessment Sitting Balance and Reactions Static Sitting Balance Ability Good Dynamic Sitting Balance Ability Fair M8 OT- IP Objective Assessments Start: 03/16/20 14:26 Freq: Status: Active Protocol: Document 03/16/20 14:27 CGR (Rec: 03/16/20 14:49 CGR [id number]) OT Gross Range of Motion Upper Extremity Range of Motion Assessment Within Functional Limits OT Strength Upper Extremity Strength Assessment Within Functional Limits Comments Strength Comments 4-/5 OT- Coordination Assessment Upper Extremity Finger to Nose Test Within Functional Limits Finger Tapping Test Within Functional Limits OT-Muscle Tone Assessment Muscle Tone WNL Yes OT Sensation Assessment Edema Edema Absent M9 OT- IP Assessment and Plan Start: 03/16/20 14:26 Freq: Status: Active Protocol: Document 03/16/20 14:27 CGR (Rec: 03/16/20 14:49 CGR [id number]) OT Summary Assessment and Plan Potential Rehabilitation Potential Excellent Analytic Complexity at Evaluation Moderate Summary OT Impairments Pain,Strength,Balance, Functional Mobility,Grooming, Dressing,Toileting,Bathing, Toilet Transfers,Shower Transfers,Activity Tolerance Progress Towards Goals Slow Progress due to Pain Assessment Summary Pt presents as a moderate complexity evaluation s/p admit for R hip fx. Pt underwent closed reduction with percutaneous pinning and is 50% weight bearing per Dr. An who was in the pt's room at the start of this therapy session. Pt is progressing well with mobility and ADLs. Pt states she wants to go home. Pt educated on home DME needs and assist and educated multiple times that she needs to set up caregivers and DME DEJON. Pt would benefit from SNF stay but currently in not agreeable. Recommendation is for SNF however, if pt discharges home she will need 12 hours of care a day and DME listed below. Goals Grooming Goal Independent Dressing Goal Independent Toileting Goal Independent Bathing Goal Independent Toilet Transfer Goal Independent Shower Transfer Goal Independent Days to Meet Goals 15 Frequency of Treatment Frequency Of Treatment Once a Day Treatment Plan OT Treatment Plan ADL Training,Functional Mobility,Patient/Family Education Other Treatment Recommendations and Next shower prior to discharge. Treatment Focus Discharge Recommendations OT Discharge Recommendations SNF Rehab Other Discharge Recommendations Recommend d/c to SNF but if home pt will need 12 hours of caregiver support. Home Equipment Needs BSC, toilet heightner with arm rails, shower chair, install GB in shower, WC for outdoor distances. Transportation Needs at Discharge Private Vehicle
--- NOTE | 2020-03-16 13:33 | PT.IPTN ---
Current Diagnoses Unspecified intracapsular fracture of right femur, initial encounter for closed fracture (03/14/20) Surgery Performed Operation Date: 03/15/20 10:45 Actual Procedures p ORIF Hip/Cannulated Screws(Right) - Barry An MD Physical Therapy Treatment Note M2 PT-IP Current Condition Start: 03/15/20 15:41 Freq: NEEDED Status: Active Protocol: Document 03/15/20 14:26 AB (Rec: 03/15/20 16:00 AB [id number]) Physical Therapy Current Condition Current Condition Evaluation Date 03/15/20 Treatment Diagnosis R femur fx s/p percutaneous pinning; difficulty in walking Onset Date 03/14/20 Weight Bearing Status Weight Bearing Status Touch Down Weight Bearing Allowed Weight Bearing Amount (enter % RLE TTWB or #) (%) M3 PT-IP Subjective Start: 03/15/20 15:41 Freq: NEEDED Status: Active Protocol: Document 03/16/20 13:10 CLB (Rec: 03/16/20 14:32 CLB [id number]) Subjective Physical Therapy Visit Type Type Treatment Note Visit Start Time 13:10 Visit Stop Time 13:33 Total Visit Minutes 23 Number of REGULATORY AFFAIRS MANAGER Visits 2 Physical Therapy Visit Comments Patient Comments Pt agreeable to work with therapy. Therapy Pain Assessment Pain When Pain Assessed During Mobility Pain Present Pain Present Denied Pain M4 PT-IP Mobility and Gait Start: 03/15/20 15:41 Freq: NEEDED Status: Active Protocol: Document 03/16/20 13:10 CLB (Rec: 03/16/20 14:32 CLB [id number]) PT-Bed Mobility Assessment Sit to Supine Sit to Supine Minimal Assistance,1 Person Assistance PT-Transfer Assessment Sit to and From Stand Sit to and from Stand Standby Assistance,1 Person Assistance,Use of Upper Extremities Equipment Transfer Assistive Device Gait Belt,Front Wheeled Walker Orthotic/Prosthetic Devices or Brace: No Transfers Transfer Destination Bed,Toilet Transfer Technique Stand Step Pivot Transfer Ability Level of Assist Standby Assistance,Contact Guard Assistance,1 Person Assistance,Use of Upper Extremities Comments Mobility Comments Pt stood SBA from chair and ambulated ~15ft around bed, then into bathroom requiring CGA to sit on toilet with cues to use wall rail. Pt then stood CGA with use of wall rail and ambulated ~10ft to bedside. Pt required Min A of RLE onto bed. Pt then performed AP, GS, QS and HS. SCD's placed on BLE , HUNTER TRAPPER present at end of treat. Gait Assessment Gait Gait Assistance Required: Standby Assistance,Contact Guard Assist,1 Person Assist Distance (Feet) 35 Able to Maintain Weight Bearing Status Yes During Gait Assistive Devices Assistive Device Gait Belt,Front Wheeled Walker Orthotic/Prosthetic Devices or Brace: No Gait Deviations General Gait Pattern Antalgic,Decreased Stride Length,Decreased Feet Clearance,Step-to Gait Factors Limiting Gait Function Factors Limiting Gait Function Decreased Activity Tolerance, Decreased Strength,Limited Range of Motion,Pain,Poor Balance,Poor Safety Awareness Comments Gait Comments Pt requires cues to keep walker close to insure she is placing enough wt through her arms to only put 50% weight through RLE during WBing. Stair Climbing Assessment Comments Stair Climbing Comments not assessed, pt has one step to enter. M5 PT-IP Objective Assessments Start: 03/15/20 15:41 Freq: NEEDED Status: Active Protocol: Document 03/15/20 14:26 AB (Rec: 03/15/20 16:00 AB [id number]) Orientation Orientation/Cognition Level of Alertness Alert Orientation Name,Place,Situation Language Function Ability No Deficits Noted Safety Awareness Decreased Safety Awareness Memory Description Short Term Impaired Gross Range of Motion Lower Extremity ROM Assessment Within Functional Limits Impairments RLE movement limited due to c/ o increase pain Strength Lower Extremity Strength Assessment Right Impaired Hip 2-/5 Knee 3-/5 Sensation Assessment Sensation Gross Sensation WNL Muscle Tone Muscle Tone WNL Yes M6 PT-IP Treatment Start: 03/15/20 15:41 Freq: NEEDED Status: Active Protocol: Document 03/16/20 13:10 CLB (Rec: 03/16/20 14:32 CLB [id number]) Physical Therapy Treatment Exercises Exercises Ankle Pumps,Gluteal Sets,Quad Sets,Heel Slides Education Education Provided Precautions,Weight Bearing Status,Safety M7 PT-IP Assessment and Plan Start: 03/15/20 15:41 Freq: NEEDED Status: Active Protocol: Document 03/16/20 13:10 CLB (Rec: 03/16/20 14:32 CLB [id number]) PT Summary Assessment and Plan Potential Rehabilitation Potential Fair Status of Condition at Evaluation Evolving Summary Impairments Pain,ROM,Strength,Balance, Coordination,Sensation,Tone, Cognition,Bed Mobility, Transfers,Gait,Activity Tolerance Assessment Summary Pt requiring Min A of RLE onto bed and CGA-SBA with gait and sit<>stand. Pt refusing SNF rehab and plans to hire CG to assist her at home. Pt will require 24/7 assist at home for safety during mobility due to her WB status. Pt will need to climb one step before d/c. Goals Bed Mobility Goal Independent Transfer Goal Independent,Front Wheeled Walker Gait Goal Independent,Front Wheel Walker Gait Distance 100 Other Goals up/down 1 step using FWW SBA Days to Meet Goals 10 Frequency of Treatment Frequency Of Treatment Twice a Day Treatment Plan Physical Therapy Treatment Plan Bed Mobility Training,Transfer Training,Gait Training, Therapeutic Exercise,Balance Retraining,Post Op Education, Discharge Planning,Hot or Cold Pack,Neuromuscular Re-ed, Coordination Retraining,Manual Therapy Recommendations To Nursing Amount of Assist Needed 1 Person Assist Discharge Recommendations PT Discharge Recommendations Home with 24/7 Assist,Home Health,SNF Rehab Transportation Needs at Discharge Private Vehicle,Wheelchair/ Cabulance
--- NOTE | 2020-03-16 15:00 | CM.DPC ---
DCP: Reviewed chart. Patient is POD#1 from right hip pinning. Per notes patient fell at home. This surgery was not elective. PT and OT following patient. LAMP INSPECTOR met with patient explained role. Patient alert and oriented up in recliner at time of visit. Patient reports that she hopes to d/c home when stable. Per therapy patient did much better today. Patient requesting HH if possible at time of d/c. Agency choice is [facility]. Patient also in agreement to SNF as last resort. Patient provided this LAMP INSPECTOR with permission to give referral to [facility] for review. P: Pending. Anticipate home with HH vs. SNF. Patient provided with caregiver agency resources. In addition to HH patient requesting care givers through [employer] [facility]. Message left for them to call patient. JESUS Hatch
--- NOTE | 2020-03-16 18:21 | PC.NURSE ---
Addendum entered by Nika Mcfarland R.N. 03/16/20 21:27: Denies pain or need or desire for pain meds. Declines offer to reposition at this time. No change in neurovascular status to RLE. Addendum entered by Nika Mcfarland R.N. 03/16/20 18:43: I.S. teaching not done as pt reports not needed as does frequent deep breathing and breath holding. Original Note: Pt awake and alert resting quietly in bed. Denies pain at rest, but expresses wishes to keep on top of pain. [place] administered with evening meal. Denies nausea. Taking diet well. Offered prune juice for bowel function which pt refuses. Denies passing flatus. Agu[place] to gravity secured. Nonpitting edema to RLE. Ice to bulky dressing right hip applied. Palpable pedal pulses BL. BL calf scd's in place.
[2020-03-16] MEDS: SODIUM CHLORIDE 0.9% FLUSH 10 ML IV (21:30)
[2020-03-17] VITALS (7 sets, daily range): BP systolic 128–152; BP diastolic 67–89; PULSE 70–85; RESP 15–20; TEMP 36.3–37.6; O2SAT 94–97
[2020-03-17] MEDS: HYDROCODONE/ACET 5/325 TABLET 2 TAB PO ×4 (05:26→21:56)
--- NOTE | 2020-03-17 07:44 | PM.PNPO.1 ---
Subjective Subjective Date Patient Seen: 03/17/20 Time Patient Seen: 07:44 Interval history: POD #2 s/p right hip closed reduction and percutaneous pinning with Dr. An. Patient is doing well today. No complaints of pain. She has been slow to mobilize. Exam Vital Signs (past 8 hours): - 03/16/20 23:58 03/17/20 01:00 03/17/20 05:00 Temperature 97.1 F L Pulse Rate 82 Respiratory Rate 16 Blood Pressure 111/66 Pulse Oximetry 95 95 95 03/17/20 05:50 Temperature 99.6 F Pulse Rate 85 Respiratory Rate 16 Blood Pressure 147/89 H Pulse Oximetry 95 Oxygen Delivery Method Room Air Oxygen Flow Rate 0 Narrative Exam Narrative: Patient lying in bed in NAD. Dressing on right hip is CDI. Calves are soft, compressible, and nonteder bilaterally. SILT throughout BLEs. She is actively dorsiflex and plantarflex. DP pulses are symmetrical. Objective Labs Result Diagrams: 03/15/20 06:15 03/15/20 06:15 [facility] Medical History Basal cell carcinoma (BCC) Neuroma Osteoarthritis Pes planus of both feet Surgical History History of bunionectomy History of knee replacement procedure of right knee (~2017) Family History Father Cancer Tobacco use Mother No problems noted. Social History household members: none Smoking Status: Former smoker alcohol intake: current Assessment & Plan Post-op Postoperative Procedures: Procedures Operation Date: 03/15/20 10:45 Actual Procedures Side Surgeon p ORIF Hip/Cannulated Screws Right Barry An MD Patient will mobilize with PT. Toe-touch weight-bearing for the next 6 weeks. Continue pain control. She will need home health when she discharges home likely tomorrow. Quality VTE Deep Vein Thrombosis/Pulmonary Embolism Present on Admission: No
[2020-03-17] MEDS: ENOXAPARIN 40 MG/0.4 ML SYRINGE SUBCUT (09:37)
[2020-03-17] MEDS: SODIUM CHLORIDE 0.9% FLUSH 10 ML IV ×2 (09:37→22:03)
[2020-03-17] MEDS: DOCUSATE 100 MG CAPSULE PO ×2 (09:37→22:00)
--- NOTE | 2020-03-17 10:40 | PT.IPTN ---
Current Diagnoses Unspecified intracapsular fracture of right femur, initial encounter for closed fracture (03/14/20) Surgery Performed Operation Date: 03/15/20 10:45 Actual Procedures p ORIF Hip/Cannulated Screws(Right) - Barry An MD Physical Therapy Treatment Note M2 PT-IP Current Condition Start: 03/15/20 15:41 Freq: NEEDED Status: Active Protocol: Document 03/15/20 14:26 AB (Rec: 03/15/20 16:00 AB [id number]) Physical Therapy Current Condition Current Condition Evaluation Date 03/15/20 Treatment Diagnosis R femur fx s/p percutaneous pinning; difficulty in walking Onset Date 03/14/20 Weight Bearing Status Weight Bearing Status Touch Down Weight Bearing Allowed Weight Bearing Amount (enter % RLE TTWB or #) (%) M3 PT-IP Subjective Start: 03/15/20 15:41 Freq: NEEDED Status: Active Protocol: Document 03/17/20 10:19 CLB (Rec: 03/17/20 11:26 CLB [id number]) Subjective Physical Therapy Visit Type Type Treatment Note Visit Start Time 10:19 Visit Stop Time 10:40 Total Visit Minutes 21 Physical Therapy Visit Comments Patient Comments Pt stating maybe she should go to SNF but I am not able to make a decsion right now Therapy Pain Assessment Pain When Pain Assessed During Mobility Pain Present Pain Present Pain Reported M4 PT-IP Mobility and Gait Start: 03/15/20 15:41 Freq: NEEDED Status: Active Protocol: Document 03/17/20 10:19 CLB (Rec: 03/17/20 11:26 CLB [id number]) PT-Bed Mobility Assessment Supine to Sit Supine to Sit Minimal Assistance,1 Person Assistance Scooting Scooting to Edge of Bed Standby Assistance PT-Transfer Assessment Sit to and From Stand Sit to and from Stand Minimal Assistance,1 Person Assistance,Use of Upper Extremities Equipment Transfer Assistive Device Gait Belt,Front Wheeled Walker Orthotic/Prosthetic Devices or Brace: No Transfers Transfer Destination Toilet Transfer Technique Stand Step Pivot Transfer Ability Level of Assist Contact Guard Assistance,1 Person Assistance,Use of Upper Extremities Comments Mobility Comments Pt performed QS, AP and AAROM for HS and supine hip abd. Pt required Min A with supine to sit from flat bed and Min A of RLE while pt scooted to EOB. Pt required Min A from sit- stand. Pt required CGA for gait to BR, then Min A for stand-sit on toilet to slow descent and cues to use wall rail. Pt left on toilet with OT present to assist pt to shower. Gait Assessment Gait Gait Assistance Required: Contact Guard Assist,1 Person Assist Distance (Feet) 10 Able to Maintain Weight Bearing Status Yes During Gait Assistive Devices Assistive Device Gait Belt,Front Wheeled Walker Orthotic/Prosthetic Devices or Brace: No Gait Deviations General Gait Pattern Antalgic,Decreased Stride Length,Decreased Feet Clearance,Step-to Gait Factors Limiting Gait Function Factors Limiting Gait Function Decreased Activity Tolerance, Decreased Strength,Limited Range of Motion,Pain,Poor Balance,Poor Safety Awareness Comments Gait Comments Pt continues to require cues to keep walker close. Stair Climbing Assessment Comments Stair Climbing Comments not assessed, pt has one step to enter. M5 PT-IP Objective Assessments Start: 03/15/20 15:41 Freq: NEEDED Status: Active Protocol: Document 03/15/20 14:26 AB (Rec: 03/15/20 16:00 AB [id number]) Orientation Orientation/Cognition Level of Alertness Alert Orientation Name,Place,Situation Language Function Ability No Deficits Noted Safety Awareness Decreased Safety Awareness Memory Description Short Term Impaired Gross Range of Motion Lower Extremity ROM Assessment Within Functional Limits Impairments RLE movement limited due to c/ o increase pain Strength Lower Extremity Strength Assessment Right Impaired Hip 2-/5 Knee 3-/5 Sensation Assessment Sensation Gross Sensation WNL Muscle Tone Muscle Tone WNL Yes M6 PT-IP Treatment Start: 03/15/20 15:41 Freq: NEEDED Status: Active Protocol: Document 03/17/20 10:19 CLB (Rec: 03/17/20 11:26 CLB [id number]) Physical Therapy Treatment Exercises Exercises Ankle Pumps,Quad Sets,Heel Slides,Supine Hip Abduction Education Education Provided Precautions,Weight Bearing Status,Safety Other Treatments Other Treatment Performed Pt requires AAROM for supine hip abd and HS. M7 PT-IP Assessment and Plan Start: 03/15/20 15:41 Freq: NEEDED Status: Active Protocol: Document 03/17/20 10:19 CLB (Rec: 03/17/20 11:26 CLB [id number]) PT Summary Assessment and Plan Potential Rehabilitation Potential Fair Status of Condition at Evaluation Evolving Summary Impairments Pain,ROM,Strength,Balance, Coordination,Sensation,Tone, Cognition,Bed Mobility, Transfers,Gait,Activity Tolerance Progress Towards Goals Slow Progress due to Pain,Slow Progress due to Activity Tolerance Assessment Summary Pt requiring increased assist OOB with supine-sit and assist with RLE. Pt required Min A for sit<>stand and CGA with cues for walker management during gait. Pt would benefit from SNF rehab to improve activity tolerance , pt is undecided about going to SNF or home with 24/7 assist and doesn't think a friend would be able to come to the hospital for CG training. Goals Bed Mobility Goal Independent Transfer Goal Independent,Front Wheeled Walker Gait Goal Independent,Front Wheel Walker Gait Distance 100 Other Goals up/down 1 step using FWW SBA Days to Meet Goals 10 Frequency of Treatment Frequency Of Treatment Twice a Day Treatment Plan Physical Therapy Treatment Plan Bed Mobility Training,Transfer Training,Gait Training, Therapeutic Exercise,Balance Retraining,Post Op Education, Discharge Planning,Hot or Cold Pack,Neuromuscular Re-ed, Coordination Retraining,Manual Therapy Recommendations To Nursing Amount of Assist Needed 1 Person Assist Discharge Recommendations PT Discharge Recommendations Home with 24/7 Assist,Home Health,SNF Rehab Transportation Needs at Discharge Private Vehicle,Wheelchair/ Cabulance
--- NOTE | 2020-03-17 11:28 | OT.IP.TRT ---
Current Diagnoses Unspecified intracapsular fracture of right femur, initial encounter for closed fracture (03/14/20) Surgery Performed Operation Date: 03/15/20 10:45 Actual Procedures p ORIF Hip/Cannulated Screws(Right) - Barry An MD Occupational Therapy Treatment Note M2 OT-IP Current Condition Start: 03/16/20 14:26 Freq: Status: Active Protocol: Document 03/16/20 14:27 CGR (Rec: 03/16/20 14:49 CGR [id number]) Occupational Therapy Current Condition Current Condition Evaluation Date 03/16/20 Treatment Diagnosis R hip fx s/p closed reducation and pinning. Diagnosis Onset Date 03/14/20 Weight Bearing Status Weight Bearing Status Partial Weight Bearing Allowed Weight Bearing Amount (enter % 50% verbally given order by Dr or #) (%) . Nataliya who was present in room when OT entered M3 OT- IP Subjective and Pain Start: 03/16/20 14:26 Freq: Status: Active Protocol: Document 03/17/20 12:17 CCC (Rec: 03/17/20 12:30 CCC [id number]) OT- Subjective Occupational Therapy Visit Type Type Treatment Note Visit Start Time 10:19 Visit Stop Time 11:28 Total Visit Minutes 69 Occupational Therapy Visit Comments Patient Comments Pt wanting to shower. DIRECTOR OF FUNDRAISING present initially as both OT and DIRECTOR OF FUNDRAISING trying to encourage pt to decide to go to skilled rehab versus home with assist . Patient/Caregiver Goals TO go home. M4 OT- IP ADL's Start: 03/16/20 14:26 Freq: Status: Active Protocol: Document 03/17/20 12:17 [facility] (Rec: 03/17/20 12:30 [facility] [id number]) OT [id number] Comments OT Self-Feeding Comments NOt at meal time. OT ADL-Grooming General Evaluation Grooming Ability Standby Assistance Areas Needing Assistance Retrieving/Set-up of Grooming Items,Combing/Brushing Hair, Face Washing Comments OT Grooming Comments seated in chair with set up OT ADL-Dressing General Eval Lower Body Dressing Ability Maximum Assistance Areas Needing Assistance Socks Comments OT Dressing Comments Pt able to use supervisor dock to assist to doff her socks but too tired to try use of sock aid after showering . OT ADL-Toileting General Evaluation Toileting Ability Standby Assistance Comments OT Toileting Comments Pt able to wipe on her own. Pt heavy use of grab bar to help come to stand. Pt states her friend is going to citrus picker BSC/RTS with handles for her. OT ADL-Bathing Bathing Type Bathing Type Shower General Evaluation Bathing Ability Minimal Assistance Devices Bathing Equipment Hand Held Shower Sprayer, Shower Chair with Arms,Grab Bars Comments OT Bathing Comments Pt needing assist to wash her back and CGA while standing to do pericare needs and heavy use of grab bars to assist to stand. M5 OT- IP IADL's Start: 03/16/20 14:26 Freq: Status: Active Protocol: Document 03/16/20 14:27 CGR (Rec: 03/16/20 14:49 CGR [id number]) OT-Instrumental Activities of Daily Living Deficits IADL Deficits Identified No Deficits Home Safety Awareness Awareness of Need for Assistance at Home Good Awareness Ability to Problem Solve Emergency Able to Problem Solve Situations Home Safety Comments Pt seems to understand that she will need assist at home but needs time to come to terms with equipment needs. Medication Management Medication Management No Deficits Identified Money Management Money Management No Deficits Identified Meal Preparation Meal Preparation Caregiver Provides Assist Studio Musician Studio Musician Caregiver Provides Assist Driving Driving Comments Pt understands that she will not be able to drive for some time. M6 OT- IP Functional Cognition Start: 03/16/20 14:26 Freq: Status: Active Protocol: Document 03/17/20 12:17 [facility] (Rec: 03/17/20 12:30 [facility] [id number]) Cognitive Factors Limiting Selfcare Function Cognitive Ability Level of Alertness Alert Patient Orientation Name,Age,Birthday,Month,Date, Year,Day of Week,Place, Situation Attention Span Ability Capable of Focused Attention, Capable of Sustained Attention Ability to Follow Commands Able to Follow One Step Commands Safety Awareness Underestimates Need for Assistance Cognitive Comments Cognitive Assessment Comments Pt insistent that her friends will be able to assist her and not wanting them to come in for caregiver training. Pt states has a PT friend that can stay with her for one day and then another friend who can come. Able to have pt agreed to do caregiver training in PM with DIRECTOR OF FUNDRAISING for bed mobility and step training . OT to add another session today for caregiver training. M7 OT- IP Mobility and Balance Start: 03/16/20 14:26 Freq: Status: Active Protocol: Document 03/17/20 12:17 [facility] (Rec: 03/17/20 12:30 [facility] [id number]) OT- Bed Mobility Assessment Supine to Sit Supine to Sit Assist Minimal Assistance Scooting Scooting to Edge of Bed Contact Guard Assistance OT-Transfer Assessment Sit to and From Stand Sit to and from Stand Contact Guard Assistance, Minimal Assistance Transfers Transfer Ability Contact Guard Assistance Technique Transfer Destination Bed,Chair,Shower Stall,Toilet Devices Transfer Assistive Devices Gait Belt,Front Wheeled Walker Comments Mobility Comments Pt at the end getting tired and placing more weight on her RLE and needing reminders to slide RLE forwards before sitting down. OT- Balance Assessment Sitting Balance and Reactions Static Sitting Balance Ability Good Dynamic Sitting Balance Ability Fair M8 OT- IP Objective Assessments Start: 03/16/20 14:26 Freq: Status: Active Protocol: Document 03/16/20 14:27 CGR (Rec: 03/16/20 14:49 CGR [id number]) OT Gross Range of Motion Upper Extremity Range of Motion Assessment Within Functional Limits OT Strength Upper Extremity Strength Assessment Within Functional Limits Comments Strength Comments 4-/5 OT- Coordination Assessment Upper Extremity Finger to Nose Test Within Functional Limits Finger Tapping Test Within Functional Limits OT-Muscle Tone Assessment Muscle Tone WNL Yes OT Sensation Assessment Edema Edema Absent M9 OT- IP Assessment and Plan Start: 03/16/20 14:26 Freq: Status: Active Protocol: Document 03/17/20 12:17 [facility] (Rec: 03/17/20 12:30 [facility] [id number]) OT Summary Assessment and Plan Potential Rehabilitation Potential Good Analytic Complexity at Evaluation Moderate Summary OT Impairments Pain,Strength,Balance, Functional Mobility,Grooming, Dressing,Toileting,Bathing, Toilet Transfers,Shower Transfers,Activity Tolerance Progress Towards Goals Slow Progress due to Pain Assessment Summary Pt refusing to go to skilled rehab and reluctant initially to have her friend come in for caregiver training. Pt to have caregiver come in PM , therefore to add another OT session to go over ADL and mobility needs with caregiver. Recommend skilled rehab versus home with assist for waking hours pending caregiver training. Goals Grooming Goal Independent Dressing Goal Independent Toileting Goal Independent Bathing Goal Independent Toilet Transfer Goal Independent Shower Transfer Goal Independent Days to Meet Goals 15 Frequency of Treatment Frequency Of Treatment Twice a Day for today due to caregiver training in PM. Treatment Plan OT Treatment Plan ADL Training,Functional Mobility,Patient/Family Education Discharge Recommendations OT Discharge Recommendations SNF Rehab Other Discharge Recommendations Recommend d/c to SNF but if home pt will need caregiver support during waking hours and home health. Home Equipment Needs BSC, toilet heightner with arm rails, shower chair, install GB in shower, WC for outdoor distances. Transportation Needs at Discharge Private Vehicle
--- NOTE | 2020-03-17 14:01 | OT.IPNOTE ---
Pt now deciding to go to skilled rehab , therefore 2nd OT session not needed as was going to see pt for caregiver training.
--- NOTE | 2020-03-17 14:12 | CM.DPC ---
DCP/continued: Reviewed chart. Met with patient this afternoon to discuss d/c planning. It is anticipated that patient will be medically cleared tomorrow 03-18-20. Patient seen by PT today and SNF recommended. Patient was hopeful that she would be able to d/c home with HH. Patient's friend at bedside visiting. This afternoon patient reports that she would like to go to SNF. First SNF choice is [facility]. Placed call to July at [facility] and she reports that they can accept tomorrow 03-18-20. PASRR needed. [facility] also have clinical in case patient changes her mind. P: As of right now [facility] when medically stable. JESUS Hatch
--- NOTE | 2020-03-17 14:43 | PT.IPTN ---
Current Diagnoses Unspecified intracapsular fracture of right femur, initial encounter for closed fracture (03/14/20) Surgery Performed Operation Date: 03/15/20 10:45 Actual Procedures p ORIF Hip/Cannulated Screws(Right) - Barry An MD Physical Therapy Treatment Note M2 PT-IP Current Condition Start: 03/15/20 15:41 Freq: NEEDED Status: Active Protocol: Document 03/15/20 14:26 AB (Rec: 03/15/20 16:00 AB [id number]) Physical Therapy Current Condition Current Condition Evaluation Date 03/15/20 Treatment Diagnosis R femur fx s/p percutaneous pinning; difficulty in walking Onset Date 03/14/20 Weight Bearing Status Weight Bearing Status Touch Down Weight Bearing Allowed Weight Bearing Amount (enter % RLE TTWB or #) (%) M3 PT-IP Subjective Start: 03/15/20 15:41 Freq: NEEDED Status: Active Protocol: Document 03/17/20 14:23 [facility] (Rec: 03/17/20 14:58 [facility] [id number]) Subjective Physical Therapy Visit Type Type Treatment Note Visit Start Time 14:23 Visit Stop Time 14:43 Total Visit Minutes 20 Notes Pt friend RICCARDO Em Sonal present and pt has decided she would go to SNF rehab. Number of PHOTOCOPIER TECHNICIAN Visits 4 Physical Therapy Visit Comments Patient Comments Pt wants to go to BR and get back into bed. Therapy Pain Assessment Pain When Pain Assessed During Mobility Pain Present Pain Present Pain Reported M4 PT-IP Mobility and Gait Start: 03/15/20 15:41 Freq: NEEDED Status: Active Protocol: Document 03/17/20 14:23 [facility] (Rec: 03/17/20 14:58 [facility] [id number]) PT-Bed Mobility Assessment Sit to Supine Sit to Supine Minimal Assistance,1 Person Assistance PT-Transfer Assessment Sit to and From Stand Sit to and from Stand Contact Guard Assistance, Minimal Assistance,1 Person Assistance,Use of Upper Extremities Equipment Transfer Assistive Device Gait Belt,Front Wheeled Walker Orthotic/Prosthetic Devices or Brace: No Transfers Transfer Destination Bed,Toilet Transfer Technique Stand Step Pivot Transfer Ability Level of Assist Contact Guard Assistance,1 Person Assistance,Use of Upper Extremities Comments Mobility Comments Pt required Min A to stand from chair and ambulated into BR requiring Min A to sit on toilet. Pt stood with use of wall rail CGA. Pt ambulated to bed requiring CGA to sit and Min A of RLE onto bed. Pt performed HS, quad sets and AP 's. Left pt in bed with alarm on and all needs within reach, RN present in room. Gait Assessment Gait Gait Assistance Required: Contact Guard Assist,1 Person Assist Distance (Feet) 20 Able to Maintain Weight Bearing Status Yes During Gait Assistive Devices Assistive Device Gait Belt,Front Wheeled Walker Orthotic/Prosthetic Devices or Brace: No Gait Deviations General Gait Pattern Antalgic,Decreased Stride Length,Decreased Feet Clearance,Step-to Gait Factors Limiting Gait Function Factors Limiting Gait Function Decreased Activity Tolerance, Decreased Strength,Limited Range of Motion,Pain,Poor Balance,Poor Safety Awareness Comments Gait Comments see mobility comments M5 PT-IP Objective Assessments Start: 03/15/20 15:41 Freq: NEEDED Status: Active Protocol: Document 03/15/20 14:26 AB (Rec: 03/15/20 16:00 AB [id number]) Orientation Orientation/Cognition Level of Alertness Alert Orientation Name,Place,Situation Language Function Ability No Deficits Noted Safety Awareness Decreased Safety Awareness Memory Description Short Term Impaired Gross Range of Motion Lower Extremity ROM Assessment Within Functional Limits Impairments RLE movement limited due to c/ o increase pain Strength Lower Extremity Strength Assessment Right Impaired Hip 2-/5 Knee 3-/5 Sensation Assessment Sensation Gross Sensation WNL Muscle Tone Muscle Tone WNL Yes M6 PT-IP Treatment Start: 03/15/20 15:41 Freq: NEEDED Status: Active Protocol: Document 03/17/20 14:23 [facility] (Rec: 03/17/20 14:58 [facility] [id number]) Physical Therapy Treatment Exercises Exercises Ankle Pumps,Quad Sets,Heel Slides M7 PT-IP Assessment and Plan Start: 03/15/20 15:41 Freq: NEEDED Status: Active Protocol: Document 03/17/20 14:23 [facility] (Rec: 03/17/20 14:58 [facility] [id number]) PT Summary Assessment and Plan Potential Rehabilitation Potential Fair Status of Condition at Evaluation Evolving Summary Impairments Pain,ROM,Strength,Balance, Coordination,Sensation,Tone, Cognition,Bed Mobility, Transfers,Gait,Activity Tolerance Progress Towards Goals Slow Progress due to Pain,Slow Progress due to Activity Tolerance Assessment Summary Pt requires CGA-Min A for mobility with increased assist with sit-stand from low chair . Pt complained of pain in left knee. Pt will benefit from SNF rehab before returning home and pt has agreed that would be best plan for her now. Goals Bed Mobility Goal Independent Transfer Goal Independent,Front Wheeled Walker Gait Goal Independent,Front Wheel Walker Gait Distance 100 Other Goals up/down 1 step using FWW SBA Days to Meet Goals 10 Frequency of Treatment Frequency Of Treatment Twice a Day Treatment Plan Physical Therapy Treatment Plan Bed Mobility Training,Transfer Training,Gait Training, Therapeutic Exercise,Balance Retraining,Post Op Education, Discharge Planning,Hot or Cold Pack,Neuromuscular Re-ed, Coordination Retraining,Manual Therapy Recommendations To Nursing Amount of Assist Needed 1 Person Assist Discharge Recommendations PT Discharge Recommendations Home with 20/09 Assist,Home Health,SNF Rehab Transportation Needs at Discharge Wheelchair/Cabulance
--- NOTE | 2020-03-17 23:13 | PC.NURSE ---
Report received, care assumed 1530. A&Ox4, VSS. Up with 1-PA. Pain managed with PO meds. Plans to d/c SNF tomorrow.
[2020-03-18 00:25] VITALS: BP 114/66; PULSE 77; RESP 18; TEMP 36.3; O2SAT 95
[2020-03-18 01:00] VITALS: O2SAT 95
[2020-03-18 05:03] VITALS: O2SAT 96
[2020-03-18] MEDS: HYDROCODONE/ACET 5/325 TABLET 2 TAB PO ×2 (05:13→09:33)
[2020-03-18 05:21] VITALS: BP 151/82; PULSE 83; RESP 18; TEMP 37.1; O2SAT 96
[2020-03-18 07:56] VITALS: BP 129/72; PULSE 70; RESP 14; TEMP 36.6; O2SAT 95
[2020-03-18] MEDS: DOCUSATE 100 MG CAPSULE PO (08:36)
[2020-03-18] MEDS: ENOXAPARIN 40 MG/0.4 ML SYRINGE SUBCUT (08:36)
[2020-03-18] MEDS: SODIUM CHLORIDE 0.9% FLUSH 10 ML IV (08:36)
--- NOTE | 2020-03-18 09:08 | PC.NURSE ---
Addendum entered by Loren Fernando R.N. 03/18/20 10:02: Patient given 2 vicodin earlier for working with physical therapy, she states that her pain is a 8/10 when she is moving.Pain medication has been helpful. Patient has asked for a lidocaine patch for her left leg as this is hurting. Note left with PA at her computer, patient will also ask PA when she sees Yaneth Holland Original Note: Assess- Patient is alert and oriented x3, she denies pain at rest but states that she does have some discomfort when she is moving around. Patient is particular but cooperative and pleasant. If she does not have a bowel movement in the next hour or two, we have discussed giving her a suppository. Given capri this am and also some pruine juice. Patients CMS wnl to R.hip and dressing is cdi.
--- NOTE | 2020-03-18 10:31 | P.DS_ITS ---
History of Present Illness History of Present Illness Date Patient Seen: 03/18/20 Time Patient Seen: 10:31 Chief complaint: fall yesterday, right hip pain Narrative: Please see previous HPI recorded in the chart. Discharge Providers Provider Date of admission: 03/14/20 17:28 Discharge Date: 03/18/20 Primary care physician: Enedelia Fabian DO Consults: 03/14/20 20:15 Consult to Physician Routine Comment: Consulting Provider: Barry An Reason for consultation: left hip fx Has provider been notified: Yes 03/15/20 11:25 Consult to Discharge Planning Routine Comment: Consult to Physical Therapy Evaluate & Treat Comment: Physician Instructions: Evaluate and Treat Consult to Respiratory Therapy Evaluate & Treat Comment: Physician Instructions: Evaluate and treat 03/15/20 15:30 Consult to Occupational Therapy Evaluate & Treat Comment: Physician Instructions: Evaluate and treat Discharge provider: Kisha Santos PA-C Summary Hospital Course Discharge Diagnosis: femoral neck fracture Hospital Course: Patient is a 84 year old female who presented to ED after a fall at home. CT was obtained which identified an impacted nondisplaced femoral neck fracture. Orthopedics was consulted and surgical intervention was indicated. After discussion of benefts and risks patient elected to proceed with surgery and underwent a closed reduction with percutaneous pinning of right proximal femur fracture with Dr. An later that day. She has been restricted to toe touch weight bearing on the right side. Her pain has been controlled with [place]. She has been mobilizing poorly as expected with her activity restrictions but has been working with PT. She has been tolerating a diet and voiding appro priately. She has been receiving Enoxaparin for DVT prophylaxis while inpatient but will be transitioned to ASA 81mg BID once she discharges. Due to her poor mobility she will be discharged to SNF. On POD #3 she was deemed medically stable for discharge to SNF. Will follow up in [address] An. Status at Discharge Cognitive/behavioral status at discharge: oriented Overall status at discharge: patient is progressing back to baseline Exam Vital Signs (past 8 hours): - 03/18/20 05:03 03/18/20 05:21 03/18/20 07:56 Temperature 98.7 F 97.9 F Pulse Rate 83 70 Respiratory Rate 18 14 Blood Pressure 151/82 H 129/72 Pulse Oximetry 96 96 95 Oxygen Delivery Method Room Air Oxygen Flow Rate 0 Narrative Exam Narrative: 84 year old female resting in bed, alert and oriented in no acute distress. Bulky dressing in place over lateral hip is CDI. Patient able to dorisflex and plantar flex the ankle. Calves are soft, nontender. Palpable pedal pulse. Objective Labs Result Diagrams: 03/15/20 06:15 03/15/20 06:15 [facility] Medical History Basal cell carcinoma (BCC) Neuroma Osteoarthritis Pes planus of both feet Surgical History History of bunionectomy History of knee replacement procedure of right knee (~2017) Family History Father Cancer Tobacco use Mother No problems noted. Social History household members: none Smoking Status: Former smoker alcohol intake: current Discharge Plan Discharge Plan Patient Disposition: SNF Transfer to: [facility] Consult as needed: Dental, Hearing, Mental health, Podiatry and Vision Discharge orders & Medications Prescriptions: New acetaminophen 325 mg Tablet 975 mg PO TID PRN (Reason: Headache) Qty: 40 RF: 0 docusate sodium [DOK] 100 mg Capsule 100 mg PO BID Qty: 40 RF: 0 hydrocodone-acetaminophen 5-325 mg Tablet 2 tab PO Q4HR PRN (Reason: Pain, Moderate (4-6)) Qty: 40 RF: 0 lidocaine 5 % Adhesive Patch,Medicated 1 patch topical DAILY Qty: 30 RF: 0 aspirin 81 mg tablet,chewable 81 mg PO BID Qty: 40 RF: 0 Discontinued Acetaminophen Extra Strength 500 mg PO PRN PRN (Reason: Pain, Moderate) RF: 0 Follow up/Referrals: Andreas Tobin MD [Physician] - Discharge Health Status Precautions: [place] Diet/Activity/Treatments Diet: Diet as Tolerated Liquid consistency: Normal/Thin Food texture: Regular Activity: Toe touch weight bearing on the right. Cold/Heat Therapy: Ice packs as needed. Skin/Wound/Dressing Care Report to your healthcare provider any signs of infection, such as:: chills, fever, night sweats, unusual drainage and unusual redness Dressing: Dressing may be changed if soiled. Special Rehabilitation Services Reason for rehabilitation: Post-operative therapy Rehab type: Physical therapy and Occupational therapy Visit Report/Discharge Packet Instructions: DI for Open Reduction Internal Fixation Surgery, DI for Prescription Opioid Use Discharge Data Primary Care Provider: Enedelia Fabian VTE Deep Vein Thrombosis/Pulmonary Embolism Present on Admission: No
--- NOTE | 2020-03-18 10:44 | PT.IPTN ---
Current Diagnoses Unspecified intracapsular fracture of right femur, initial encounter for closed fracture (03/14/20) Surgery Performed Operation Date: 03/15/20 10:45 Actual Procedures p ORIF Hip/Cannulated Screws(Right) - Barry An MD Physical Therapy Treatment Note M2 PT-IP Current Condition Start: 03/15/20 15:41 Freq: NEEDED Status: Active Protocol: Document 03/15/20 14:26 AB (Rec: 03/15/20 16:00 AB [id number]) Physical Therapy Current Condition Current Condition Evaluation Date 03/15/20 Treatment Diagnosis R femur fx s/p percutaneous pinning; difficulty in walking Onset Date 03/14/20 Weight Bearing Status Weight Bearing Status Touch Down Weight Bearing Allowed Weight Bearing Amount (enter % RLE TTWB or #) (%) M3 PT-IP Subjective Start: 03/15/20 15:41 Freq: NEEDED Status: Active Protocol: Document 03/18/20 10:32 CLB (Rec: 03/18/20 12:28 CLB [id number]) Subjective Physical Therapy Visit Type Type Treatment Note Visit Start Time 10:32 Visit Stop Time 10:44 Total Visit Minutes 12 Number of SACK [employer] MACHINE Visits 5 Physical Therapy Visit Comments Patient Comments Pt wants to go to BR and get back into bed. Therapy Pain Assessment Pain When Pain Assessed During Mobility Pain Present Pain Present Pain Reported M4 PT-IP Mobility and Gait Start: 03/15/20 15:41 Freq: NEEDED Status: Active Protocol: Document 03/18/20 10:32 CLB (Rec: 03/18/20 12:28 CLB [id number]) PT-Bed Mobility Assessment Supine to Sit Supine to Sit Minimal Assistance,1 Person Assistance Scooting Scooting to Edge of Bed Standby Assistance PT-Transfer Assessment Sit to and From Stand Sit to and from Stand Contact Guard Assistance,1 Person Assistance,Use of Upper Extremities Equipment Transfer Assistive Device Gait Belt,Front Wheeled Walker Orthotic/Prosthetic Devices or Brace: No Transfers Transfer Destination Toilet Transfer Technique Stand Step Pivot Transfer Ability Level of Assist Contact Guard Assistance,1 Person Assistance,Use of Upper Extremities Comments Mobility Comments Pt in bed performed ther ex in supine. Pt requiring Min A to EOB then CGA for sit-stand from bed. Pt ambulate ~10ft to BR and required CGA to sit. Once on toilet pt requested extra time to try and use BR, call light within reach in BR, [employer] called and stated will assist pt from toilet when she is finished. Gait Assessment Gait Gait Assistance Required: Contact Guard Assist,1 Person Assist Distance (Feet) 10 Able to Maintain Weight Bearing Status Yes During Gait Assistive Devices Assistive Device Gait Belt,Front Wheeled Walker Orthotic/Prosthetic Devices or Brace: No Gait Deviations General Gait Pattern Antalgic,Decreased Stride Length,Decreased Feet Clearance,Step-to Gait Factors Limiting Gait Function Factors Limiting Gait Function Decreased Activity Tolerance, Decreased Strength,Limited Range of Motion,Pain,Poor Balance,Poor Safety Awareness Comments Gait Comments see mobility comments M5 PT-IP Objective Assessments Start: 03/15/20 15:41 Freq: NEEDED Status: Active Protocol: Document 03/15/20 14:26 AB (Rec: 03/15/20 16:00 AB [id number]) Orientation Orientation/Cognition Level of Alertness Alert Orientation Name,Place,Situation Language Function Ability No Deficits Noted Safety Awareness Decreased Safety Awareness Memory Description Short Term Impaired Gross Range of Motion Lower Extremity ROM Assessment Within Functional Limits Impairments RLE movement limited due to c/ o increase pain Strength Lower Extremity Strength Assessment Right Impaired Hip 2-/5 Knee 3-/5 Sensation Assessment Sensation Gross Sensation WNL Muscle Tone Muscle Tone WNL Yes M6 PT-IP Treatment Start: 03/15/20 15:41 Freq: NEEDED Status: Active Protocol: Document 03/18/20 10:32 CLB (Rec: 03/18/20 12:28 CLB [id number]) Physical Therapy Treatment Exercises Exercises Ankle Pumps,Quad Sets,Heel Slides,Supine Hip Abduction Education Education Provided Precautions,Weight Bearing Status,Safety Other Treatments Other Treatment Performed Pt requires AAROM for supine hip abd and HS. M7 PT-IP Assessment and Plan Start: 03/15/20 15:41 Freq: NEEDED Status: Active Protocol: Document 03/18/20 10:32 CLB (Rec: 03/18/20 12:28 CLB [id number]) PT Summary Assessment and Plan Potential Rehabilitation Potential Fair Status of Condition at Evaluation Evolving Summary Impairments Pain,ROM,Strength,Balance, Coordination,Sensation,Tone, Cognition,Bed Mobility, Transfers,Gait,Activity Tolerance Progress Towards Goals Slow Progress due to Pain,Slow Progress due to Activity Tolerance Assessment Summary Pt continues to require Min A for bed mobility with HOB elevated and CGA for gait. Goals Bed Mobility Goal Independent Transfer Goal Independent,Front Wheeled Walker Gait Goal Independent,Front Wheel Walker Gait Distance 100 Other Goals up/down 1 step using FWW SBA Days to Meet Goals 10 Frequency of Treatment Frequency Of Treatment Twice a Day Treatment Plan Physical Therapy Treatment Plan Bed Mobility Training,Transfer Training,Gait Training, Therapeutic Exercise,Balance Retraining,Post Op Education, Discharge Planning,Hot or Cold Pack,Neuromuscular Re-ed, Coordination Retraining,Manual Therapy Recommendations To Nursing Amount of Assist Needed 1 Person Assist Discharge Recommendations PT Discharge Recommendations SNF Rehab Transportation Needs at Discharge Wheelchair/Cabulance
[2020-03-18 12:34] LABS: COVID19 -Nasal RAPID Negative (Negative)
--- NOTE | 2020-03-18 13:23 | CM.DPNOTE ---
Faxed PAS to July at [facility] per Lauren on 03/18/20. Fax confirmation received. Cassie Lund CM Asst.
--- NOTE | 2020-03-18 14:13 | PC.NURSE ---
Patient over to [facility]....Report given to Ivanna.
--- NOTE | 2020-03-18 15:20 | CM.DPNOTE ---
DC Note DC to [facility] today; RIKKI Matthews has assisted in coordinating details of this DC. Completed PASRR and completed and signed med list faxed to July at [facility]. COVID has been updated= Neg. W/c transport has been arranged for 1400 p/u. ENZO Pimentel made aware and is providing report to ENZO Luz at [facility] Plan: DC to [facility] today via w/c JW
--- NOTE | 2020-03-18 17:40 | PC.NURSE ---
Pt not discharged from computer at 1415 when D/C'd
== END 2020-03-18 14:15 | DRG 482 ==
LOC: ED 17:22 → AC 17:28
PROVIDERS: Nurse Practitioner Family; Orthopaedic Surgery; Admitting Provider Orthopaedic Surgery; Emergency Provider Nurse Practitioner Family; PCP Family Medicine; Referring Provider Nurse Practitioner Family; Visit Provider Orthopaedic Surgery
PROC: 0QH604Z Insertion of Internal Fixation Device into Right Upper Femur, Open Approach (ICD-10-PCS; principal; 2020-03-15 10:45)
DX: S72.011A Unspecified intracapsular fracture of right femur, initial encounter for closed fracture (principal); R03.0 Elevated blood-pressure reading, without diagnosis of hypertension; Z20.822 Contact with and (suspected) exposure to COVID-19; W01.0XXA Fall on same level from slipping, tripping and stumbling without subsequent striking against object, initial encounter; Y92.008 Other place in unspecified non-institutional (private) residence as the place of occurrence of the external cause; Z87.891 Personal history of nicotine dependence
CPT/HCPCS: 36415; 51701; 72192; 73502; 76000; 80048; 80053; 81001; 83735; 85025; 86850; 86900; 86901; 87635; 97110; 97116; 97162; 97166; 97530; 97535; 99284; C9803; J0690; J1100; J1650; J2405; J2704; J2765; J3010

== ENCOUNTER → 2020-06-25 07:54 | Outpatient (CLI) | payer BC, SELFPAY ==
[2020-04-02 09:13] VITALS: BMI 28.1
[2020-06-25 08:55] LABS: Add Manual Diff / Slide Review NO; Basophils Absolute Auto 100 /uL (0-100); Basophils Percent Auto 1.3 % (0-2); Eosinophils Absolute Auto 200 /uL (0-450); Eosinophils Percent Auto 2.9 % (2-4); Hematocrit 43.7 % (36-46); Hemoglobin 15.1 g/dL (12.0-16.0); Lymphocytes Absolute Auto 1900 /uL (1100-4500); Lymphocytes Percent Auto 35.1 % (25-40); Mean Corpuscular HGB Conc 34.6 % (30-36); Mean Corpuscular Hemoglobin 30.1 PG (26-34); Mean Corpuscular Volume 87.1 fL (80-100); Monocytes Absolute Auto 500 /uL (0-900); Monocytes Percent Auto 8.6 % (3-14); Neutrophils Absolute Auto 2900 /uL (1500-7000); Neutrophils Percent Auto 52.1 % (50-75); Platelet Count 186 X10^3/uL (150-400); Red Blood Cell Count 5.02 X10^6/uL (4.0-5.2); Red Cell Distribution Width 13.1 % (11.6-14.8); White Blood Cell Count 5.5 X10^3/uL (4.5-11.0)
[2020-06-25 09:28] LABS: Erythrocyte Sedimentation Rate 8 MM/HR (0-20)
[2020-06-25 09:41] LABS: Alanine Aminotransferase 24 IU/L (<35); Albumin Globulin Ratio 1.5 (1.0-2.8); Alkaline Phosphatase 78 U/L (38-126); Aspartate Aminotransferase 32 IU/L (14-36); BUN Creatinine Ratio 22.1 (6-22); Bilirubin Total 1.1 mg/dL (0.2-1.3); Blood Urea Nitrogen 17 mg/dL (7-17); C-Reactive Protein Quant 0.5 mg/dL (<1.0); Calcium 9.8 mg/dL (8.4-10.2); Carbon Dioxide 24 mmol/L (22-32); Chloride 105 mmol/L (98-107); Creatine Kinase 66 U/L (30-135); Estimated Glomerular Filt Rate > 60.0 mL/min (>60); Globulin 2.7 g/dL (1.7-4.1); Glucose 98 mg/dL (80-110); HEMOLYSIS < 15 (0-50); Potassium 4.4 mmol/L (3.4-5.1); Sodium 137 mmol/L (137-145); Total Protein 6.7 g/dL (6.3-8.2)
== END ==
PROVIDERS: PCP Family Medicine; Referring Provider Family Medicine; Visit Provider Family Medicine
DX: D62 Acute posthemorrhagic anemia (principal); M25.50 Pain in unspecified joint; M79.10 Myalgia, unspecified site; S72.001A Fracture of unspecified part of neck of right femur, initial encounter for closed fracture; T50.Z95A Adverse effect of other vaccines and biological substances, initial encounter; Z86.79 Personal history of other diseases of the circulatory system
CPT/HCPCS: 36415; 80053; 82550; 85025; 85651; 86140